=== PATIENT | female | born 1960 | race African-American/Black ===

== ENCOUNTER → 2016-11-30 | Emergency (ER) | payer OTHER ==
[2016-11-30 19:16] VITALS: BP 135/82; PULSE 68; TEMP 98; BMI 31.2
--- NOTE | 2016-11-30 20:08 | PDOC ---
History of Present Illness - General History Source: Patient Exam Limitations: No Limitations - History of Present Illness Initial Comments: 11/30/16 20:40 The patient is 56 year old female, with a significant past medical history of asthma, hypertension, and a brain aneurysm, who presents to the emergency department complaining of bloody stool for approximately 2 days. The patient reports she first noted her stool contained blood this past Saturday. She states she first thought her bloody stool was due to the beets she had eaten that day. However, the following day, she continued to note blood covering the toilet bowl and coating the stool. The patient denies any associated dizziness, lightheadedness, abdominal pain, nausea, vomiting, diarrhea, or constipation. She reports she is able to have 2 bowel movements per day. She states her last colonoscopy was 2 years ago. The patient denies any fever, chills, or weakness. She denies any dysuria, hematuria, frequency, or urgency. She denies any chest pain, shortness of breath, diaphoresis, or palpitations. Allergies: None reported Past Surgical History: Brain aneurysm removal Social History: Former smoker. No ETOH or drug use. PCP: Dr. David Wood Milling Machine Hand: Dr. Pena <Axel Santos - Last Filed: 11/30/16 20:49> <Ann Schumacher - Last Filed: 11/30/16 23:50> - General Chief Complaint: Rectal Bleed Stated Complaint: RECTAL BLEED Time Seen by Provider: 11/30/16 20:08 Past History <Axel Santos - Last Filed: 11/30/16 20:49> - Past Medical History Asthma: Yes HTN: Yes - Surgical History Neurologic Surgery: Yes (brain aneurysm 1999) - Psycho/Social/Smoking Cessation Hx Suicidal Ideation: No Smoking History: Former smoker Have you smoked in the past 12 months: Yes Number of Cigarettes Smoked Daily: 0 If you are a former smoker, when did you quit?: 2016 Information on smoking cessation initiated: No Substance Use Type: None <Ann Schumacher - Last Filed: 11/30/16 23:50> - Past Medical History Allergies/Adverse Reactions: Allergies Allergy/AdvReac Type Severity Reaction Status Date / Time No Known Allergies Allergy Verified 11/30/16 19:13 Home Medications: Ambulatory Orders Loratadine [Claritin] 10 mg PO PRN PRN 05/02/16 Montelukast Na [Singulair -] 10 mg PO HS 05/02/16 Pantoprazole Sodium 40 mg PO DAILY 05/02/16 Chlorthalidone 25 mg PO DAILY 11/30/16 Fluticasone Prop 0.05% Nasal [Flonase -] 1 - 2 spray NS DAILY 11/30/16 Omeprazole 20 mg PO DAILY 11/30/16 Review of Systems - Review of Systems Able to Perform ROS?: Yes Comments:: 11/30/16 20:40 GENERAL/CONSTITUTIONAL: No fever or chills. No weakness. HEAD, EYES, EARS, NOSE AND THROAT: No change in vision. No ear pain or discharge. No sore throat. CARDIOVASCULAR: No chest pain or shortness of breath. RESPIRATORY: No cough, wheezing, or hemoptysis. GASTROINTESTINAL: Yes: +hematochezia. No abdominal pain, melena, nausea, vomiting, diarrhea or constipation. GENITOURINARY: No dysuria, frequency, or change in urination. MUSCULOSKELETAL: No joint or muscle swelling or pain. No neck or back pain. SKIN: No rash NEUROLOGIC: No headache, vertigo, loss of consciousness, or change in strength/ sensation. ENDOCRINE: No increased thirst. No abnormal weight change. HEMATOLOGIC/LYMPHATIC: No anemia, easy bleeding, or history of blood clots. ALLERGIC/IMMUNOLOGIC: No hives or skin allergy. <Axel Santos - Last Filed: 11/30/16 20:49> *Physical Exam - Vital Signs Last Vital Signs Temp Pulse Resp BP Pulse Ox 98 F 68 18 135/82 97 11/30/16 19:13 11/30/16 19:13 11/30/16 19:13 11/30/16 19:13 11/30/16 19:13 - Physical Exam Comments: 11/30/16 20:40 GENERAL: Awake, alert, and fully oriented, in no acute distress HEAD: No signs of trauma EYES: PERRLA, EOMI, sclera anicteric, conjunctiva clear ENT: Auricles normal inspection, hearing grossly normal, nares patent, oropharynx clear without exudates. Moist mucosa NECK: Normal ROM, supple, no lymphadenopathy, JVD, or masses LUNGS: Diffuse crackles. Questionable fibrotic changes.No wheezes. HEART: Regular rate and rhythm, normal S1 and S2, no murmurs, rubs or gallops ABDOMEN: Soft, nontender, normoactive bowel sounds. No guarding, no rebound. No masses EXTREMITIES: Normal range of motion, no edema. No clubbing or cyanosis. No cords, erythema, or tenderness NEUROLOGICAL: Cranial nerves II through XII grossly intact. Normal speech, normal gait SKIN: Warm, Dry, normal turgor, no rashes or lesions noted. <Axel Santos - Last Filed: 11/30/16 20:49> - Vital Signs Last Vital Signs Temp Pulse Resp BP Pulse Ox 98 F 68 18 135/82 97 11/30/16 19:13 11/30/16 19:13 11/30/16 19:13 11/30/16 19:13 11/30/16 19:13 <Ann Schumacher - Last Filed: 11/30/16 23:50> ED Treatment Course - LABORATORY CBC & Chemistry Diagram: 11/30/16 20:50 11/30/16 20:50 <Ann Schumacher - Last Filed: 11/30/16 23:50> Medical Decision Making - Medical Decision Making 11/30/16 23:47 Pt comes with bloody stools yesterday and today. Stool guaic in the ER is negative for blood. Hb/HCT stable. She can follow with her PMD and her GI doc Becky. Last colonoscopy was 2 yrs ago. Pt understands that she needs another one, to be scheduled by herself next week. 11/30/16 23:50 Pt has chronically low K+ she takes potassium pills and eats bananas. I encouraged her to continue with the bananas and OJ daily. <Ann Schumacher - Last Filed: 11/30/16 23:50> *DC/Admit/Observation/Transfer - Attestations Scribe Attestion: 11/30/16 20:40 Documentation prepared by Axel Santos, acting as certified court/medical interpreter for Ann Schumacher MD. <Axel Santos - Last Filed: 11/30/16 20:49> - Discharge Dispostion Admit: No <nAn Schumacher - Last Filed: 11/30/16 23:50> Diagnosis at time of Disposition: Rectal bleed - Discharge Dispostion Disposition: HOME Condition at time of disposition: Stable - Referrals Referrals: Dinora Ratliff MD [Primary Care Provider] - Parish Pena MD [Staff Physician] - - Patient Instructions Printed Discharge Instructions: DI for Rectal Bleeding
[2016-11-30 21:01] LABS: BASOPHIL 0.5 % (0-2.0); EOSINOPHIL 2.7 % (0-4.5); MCH 28.7 pg (25.7-33.7); MCHC 33.2 g/dl (32.0-36.0); MEAN CELL VOLUME 86.4 fl (80-96); MEAN PLT VOLUME 7.9 fl (7.5-11.1); NEUTROPHILS 49.6 % (42.8-82.8); PLATELET COUNT 273 K/MM3 (134-434); WHITE BLOOD COUNT 7.9 K/mm3 (4.0-10.0)
[2016-11-30 21:21] LABS: INR 0.99 (0.82-1.09); PROTHROMBIN TIME (PATIENT) 10.9 SEC (9.98-11.88)
[2016-11-30 21:30] LABS: ALBUMIN 3.5 g/dl (3.4-5.0); ANION GAP 7 (8-16); CALCIUM 9.4 mg/dL (8.5-10.1); CO2 32 mmol/L (21-32); CREATININE 0.5 mg/dL (0.55-1.02); GLUCOSE,RANDOM 91 mg/dL (74-106); SGOT/AST 23 U/L (15-37); SGPT/ALT 29 U/L (12-78)
[2016-11-30 21:32] LABS: ALK PHOS 80 U/L (45-117); BILIRUBIN,TOTAL 0.4 mg/dL (0.2-1.0); TOT PROT 7.9 g/dl (6.4-8.2)
== END | disposition home or self-care (01) ==
LOC: JER 19:08
DX: K62.5 Hemorrhage of anus and rectum (principal); I10 Essential (primary) hypertension; J45.909 Unspecified asthma, uncomplicated
CPT/HCPCS: 36415; 80053; 82272; 85025; 85610; 85730; 86850; 86900; 86901; 99282-25

== ENCOUNTER 2017-05-24 13:56 | Emergency (ER) | payer OTHER ==
[2017-05-24 14:20] VITALS: BP 127/92; PULSE 88; TEMP 98.4; BMI 30.9
--- NOTE | 2017-05-24 14:20 | PDOC ---
Rapid Medical Evaluation Time Seen by Provider: 05/24/17 14:17 Medical Evaluation: Allergies Allergy/AdvReac Type Severity Reaction Status Date / Time No Known Allergies Allergy Verified 11/30/16 19:13 05/24/17 14:17 I have performed a brief in-person evaluation of this patient. The patient presents with a chief complaint of: Cough w/ CARRERA x 1 week, no sob or fever. H/o asthma, HTN, GERD Pertinent physical exam findings:Stable w/ clear chest/lungs I have ordered the following:nothing The patient will proceed to the ED for further evaluation.
[2017-05-24] MEDS ORDERED: predniSONE 20 MG TABLET (UD) PO ONE (16:05)
[2017-05-24] MEDS ORDERED: ALBUTEROL SO4 2.5/IPRATROPIUM 0.5 INH SOL 3 ML VIAL.NEB. NEB ONE (16:15)
[2017-05-24] MEDS ORDERED: predniSONE 20 MG TABLET (UD) ONE (16:15)
--- NOTE | 2017-05-24 16:15 | PDOC ---
History of Present Illness - General Chief Complaint: Respiratory Stated Complaint: COUGHING Time Seen by Provider: 05/24/17 14:17 History Source: Patient Exam Limitations: No Limitations - History of Present Illness Initial Comments: 05/24/17 16:08 This is a 57-year-old woman with past medical history of hypertension, asthma, gastritis, ruptured cerebral aneurysm 1999 who presents to emergency department with 7 days of dry productive cough. She states been coughing for the past week but thought it would improve steps when she had a delaying care. Patient denies any fevers or chills. Patient states the coughing has gotten worse to the point where she is now having posttussive chondral pain and headaches. Headache is frontal and feels different than her ruptured aneurysm. Patient reports she quit smoking approximately one year ago prior to that was 2 packs a day for the previous 30 years. Patient denies any sick contacts or recent travel. Past History - Past Medical History Allergies/Adverse Reactions: Allergies Allergy/AdvReac Type Severity Reaction Status Date / Time No Known Allergies Allergy Verified 05/24/17 14:20 Home Medications: Ambulatory Orders Loratadine [Claritin] 10 mg PO PRN PRN 05/02/16 Montelukast Na [Singulair -] 10 mg PO HS 05/02/16 Pantoprazole Sodium 40 mg PO DAILY 05/02/16 Chlorthalidone 25 mg PO DAILY 11/30/16 Fluticasone Prop 0.05% Nasal [Flonase -] 1 - 2 spray NS DAILY 11/30/16 Omeprazole 20 mg PO DAILY 11/30/16 Azithromycin [Zithromax 250mg Tablets -] 250 mg PO UTDICT #6 tab 05/24/17 Prednisone [Prednisone 50 MG TABLETS] 50 mg PO DAILY #4 tablet 05/24/17 Asthma: Yes COPD: No GI Disorders: Yes (acid reflux) HTN: Yes - Surgical History Neurologic Surgery: Yes (brain aneurysm 1999) - Suicide/Smoking/Psychosocial Hx Smoking History: Former smoker Have you smoked in the past 12 months: Yes Number of Cigarettes Smoked Daily: 0 If you are a former smoker, when did you quit?: 2016 Information on smoking cessation initiated: No Hx Alcohol Use: No Drug/Substance Use Hx: No Substance Use Type: None Review of Systems - Review of Systems Able to Perform ROS?: Yes Is the patient limited Ukrainian proficient: No Constitutional: No: Symptoms Reported HEENTM: No: Symptoms Reported Respiratory: Yes: See HPI Cardiac (ROS): No: Symptoms Reported ABD/GI: No: Symptoms Reported : No: Symptoms Reported Musculoskeletal: No: Symptoms Reported Integumentary: No: Symptoms Reported Neurological: Yes: See HPI *Physical Exam - Vital Signs Last Vital Signs Temp Pulse Resp BP Pulse Ox 98.4 F 88 127/92 96 05/24/17 14:17 05/24/17 14:17 05/24/17 14:17 05/24/17 14:17 - Physical Exam General Appearance: Yes: Appropriately Dressed. No: Apparent Distress HEENT: positive: Normal ENT Inspection Neck: positive: Trachea midline, Supple. negative: Tender Respiratory/Chest: positive: Crackles (left base). negative: Chest Tender, Respiratory Distress, Accessory Muscle Use Cardiovascular: positive: Regular Rhythm, Regular Rate, S1, S2. negative: Edema , Murmur Gastrointestinal/Abdominal: positive: Normal Bowel Sounds, Soft. negative: Tender Musculoskeletal: positive: Normal Inspection. negative: CVA Tenderness Extremity: positive: Normal Capillary Refill, Normal Inspection Integumentary: positive: Normal Color, Dry, Warm Neurologic: positive: juvenile probation officer II-XII NML intact, Fully Oriented, Alert, Normal Mood/ Affect, Normal Response, Motor Strength 5/5 ED Treatment Course - RADIOLOGY Radiology Studies Ordered: Category Date Time Status CHEST PA & LAT [RAD] Stat Radiology 05/24/17 16:05 Ordered Medical Decision Making - Medical Decision Making 05/24/17 16:15 This is a 57-year-old woman with past medical history of hypertension, asthma, gastritis, ruptured cerebral aneurysm 1999 who presents to emergency department with 7 days of dry productive cough. She states been coughing for the past week but thought it would improve steps when she had a delaying care. Patient denies any fevers or chills. Patient states the coughing has gotten worse to the point where she is now having posttussive chondral pain and headaches. Headache is frontal and feels different than her ruptured aneurysm. Patient reports she quit smoking approximately one year ago prior to that was 2 packs a day for the previous 30 years. Patient denies any sick contacts or recent travel. Patient is speaking in full sentences. Respirations even and unlabored without assess for muscle use. Patient with crackles in her left base. Crackles unable to clear after large cough. Headache is frontal and throbbing in nature. Patient states the headache worsens posttussive. Cranial nerves II through XII intact. Patient able to perform rapid alternating movements without difficulty. Gait is steady. Differential diagnosis include pneumonia, bronchitis I will obtain a chest x-ray PA and lateral. I will give the patient Combivent nebulizers and 40 mg of prednisone now. I will reevaluate patient after all treatment have been completed. 05/24/17 17:23 Chest x-ray - PA and lateral views. INDICATION: Abnormal lung sounds. COMPARISON : 09/19/2016 chest x-ray. FINDINGS: There are chronic, coarse reticular opacities throughout both lungs, which appear grossly similar to the prior chest x-ray allowing for differences in technique. There is unchanged biapical pleural thickening. There is no definite airspace consolidation. There is subsegmental atelectasis and/or scarring in the left lung base. There is no evidence of pulmonary vascular congestion, pleural effusion or pneumothorax. Normal size of the cardiomediastinal silhouette. No abnormal deviation of the trachea. IMPRESSION: No evidence of airspace consolidation, pulmonary vascular congestion or pleural effusion. Subsegmental atelectasis and/or scarring in the left lung base. Chronic, coarse reticular opacities throughout both lungs appear similar to the prior chest x-ray, representing some nonspecific interstitial lung disease with fibrotic changes. Reported By: Tawny Goldman DO 05/24/17 [id number] I discussed the physical exam findings, ancillary test results and final diagnoses with the patient. I answered all of the patient's questions. The patient was satisfied with the care received and felt comfortable with the discharge plan and treatment plan. The patient will call her doctor within 96 hours to arrange follow-up and will return to the Emergency Department with any new, persistent or worsening symptoms. *DC/Admit/Observation/Transfer Diagnosis at time of Disposition: Bronchitis - Discharge Dispostion Disposition: HOME Condition at time of disposition: Stable Admit: No - Prescriptions Prescriptions: Azithromycin [Zithromax 250mg Tablets -] 250 mg PO UTDICT #6 tab Prednisone [Prednisone 50 MG TABLETS] 50 mg PO DAILY #4 tablet - Referrals Referrals: Dinora Ratliff MD [Primary Care Provider] - - Patient Instructions Additional Instructions: Take azithromycin as prescribed. Take Tylenol or Motrin as needed for fevers and/or pain. Follow manufacturers instructions for appropriate dosage. Take Mucinex as directed by manufacturers instructions for cough. Keep well-hydrated. Return to emergency department for worsening fevers, cough, chest pain, dizziness, shortness of breath, or any other concerns. Thank you very much for choosing us to provide your emergent healthcare needs. - Post Discharge Activity
[2017-05-24] MEDS: ALBUTEROL SO4 2.5/IPRATROPIUM 0.5 INH SOL 3 ML VIAL.NEB. NEB SCH ×4 (16:17→17:22)
== END 2017-05-24 17:27 | disposition home or self-care (01) ==
LOC: JERFT 13:56
DX: J40 Bronchitis, not specified as acute or chronic (principal); I10 Essential (primary) hypertension; J45.909 Unspecified asthma, uncomplicated; I60.7 Nontraumatic subarachnoid hemorrhage from unspecified intracranial artery
CPT/HCPCS: 71020-TC; 99281-25

== ENCOUNTER 2017-07-05 22:16 | Emergency (ER) | payer OTHER ==
--- NOTE | 2017-07-05 23:13 | PDOC ---
History of Present Illness - History of Present Illness Initial Comments: 57 year old female with PMH of HTN, GERD, and asthma presenting with central superior buttox pain for the past day since slipping and landing on some ice. She did hit her head but did not suffer an skin breakage, OC, syncope, or other concerning symptom. She describes the tail bone pain as sharp 5/10-8/10, worse with sitting or pressure to the site and specifically when she stands up after sitting for a while. She has tried aleve with good pain control. Denies pain anywhere else. denies fevers, chills, gait abnormality, nausea, vomiting, parasthesias, lower motor weakness, bowel/ bladder incontinence, saddle anesthesia, or other symptom. 07/05/17 23:41 <Hi Li - Last Filed: 07/05/17 23:41> <Jerson Kelly - Last Filed: 07/06/17 01:56> - General Stated Complaint: FALL INJURY Time Seen by Provider: 07/05/17 23:12 Past History - Past Medical History Asthma: Yes COPD: No GI Disorders: Yes (acid reflux) HTN: Yes - Surgical History Neurologic Surgery: Yes (brain aneurysm 2000) - Suicide/Smoking/Psychosocial Hx Smoking History: Former smoker Have you smoked in the past 12 months: Yes Number of Cigarettes Smoked Daily: 0 If you are a former smoker, when did you quit?: 2016 Hx Alcohol Use: No Drug/Substance Use Hx: No Substance Use Type: None <Hi Li - Last Filed: 07/05/17 23:41> <Jerson Kelly - Last Filed: 07/06/17 01:56> - Past Medical History Allergies/Adverse Reactions: Allergies Allergy/AdvReac Type Severity Reaction Status Date / Time No Known Allergies Allergy Verified 07/05/17 23:11 Home Medications: Ambulatory Orders Loratadine [Claritin] 10 mg PO PRN PRN 05/02/16 Montelukast Na [Singulair -] 10 mg PO HS 05/02/16 Pantoprazole Sodium 40 mg PO DAILY 05/02/16 Chlorthalidone 25 mg PO DAILY 11/30/16 Fluticasone Prop 0.05% Nasal [Flonase -] 1 - 2 spray NS DAILY 11/30/16 Omeprazole 20 mg PO DAILY 11/30/16 Azithromycin [Zithromax 250mg Tablets -] 250 mg PO UTDICT #6 tab 05/24/17 Prednisone [Prednisone 50 MG TABLETS] 50 mg PO DAILY #4 tablet 05/24/17 Review of Systems - Review of Systems Constitutional: No: Chills, Diaphoresis, Fever HEENTM: No: Blurred Vision, Tearing Respiratory: Yes: Cough. No: Shortness of Breath, Wheezing Cardiac (ROS): No: Edema, Irregular Heart Rate, Chest Tightness <Hi Li - Last Filed: 07/05/17 23:41> *Physical Exam - Vital Signs Last Vital Signs Temp Pulse Resp BP Pulse Ox 98.1 F 76 16 138/88 96 07/05/17 23:12 07/05/17 23:12 07/05/17 23:12 07/05/17 23:12 07/05/17 23:12 <Jerson Kelly - Last Filed: 07/06/17 01:56> ED Treatment Course - Medications Given in the ED: ED Medications Discontinued Medications Generic Name Dose Route Start Last Admin Trade Name Kazq PRN Reason Stop Dose Admin Diazepam 5 mg 07/06/17 00:22 07/06/17 00:43 Valium - PO 07/06/17 00:23 Not Given ONCE ONE Naproxen 500 mg 07/06/17 00:22 07/06/17 00:39 Naprosyn - PO 07/06/17 00:23 500 mg ONCE ONE Administration <Jerson Kelly - Last Filed: 07/06/17 01:56> *DC/Admit/Observation/Transfer <Hi Li - Last Filed: 07/05/17 23:41> - Discharge Dispostion Admit: No <Jerson Kelly - Last Filed: 07/06/17 01:56> Diagnosis at time of Disposition: Bone bruise - Referrals Referrals: Fabrice Sanderson MD [Staff Physician] - - Patient Instructions Printed Discharge Instructions: Contusion Additional Instructions: Ice affected area 20 minutes on 20 minutes off. Take [id number] Aleve as directed on package and for 3 days. Follow-up with orthopedics next week. Return to the emergency department for any severe worsening symptoms or for any concerns.
[2017-07-05 23:19] VITALS: BP 138/88; PULSE 76; TEMP 98.1; BMI 32.5
--- NOTE | 2017-07-05 23:52 | PDOC ---
Attending Attestation - Resident Resident Name: Hi Li - ED Attending Attestation I have performed the following: I have examined & evaluated the patient, The case was reviewed & discussed with the resident, I agree w/resident's findings & plan, Exceptions are as noted <Jerson Kelly - Last Filed: 07/05/17 23:52> - HPI HPI: 07/06/17 01:12 The patient is a 57 year old female with pmxh of hypertension, GERD, and asthma presenting with buttox pain x1 day s/p fall. She describes the pain as sharp, 8/ 10 in severity that is worse with sitting and bending. It is nonradiating and well controlled by taking Aleve. She denies any numbness or tingling in bilateral lower extremities. She denies any saddle anesthesia, urinary or bladder incontinence. The patient additionally reports flu like symptoms including runny nose and body aches for the past few days. She denies any fever or chills. - Physicial Exam PE: 07/06/17 01:16 Vitals: Triage Vital signs reviewed General Appearance: no acute distress, well nourished well developed, Head: Atraumatic, normocephalic Cardiac: Regular rate and rhythm, no murmurs, no rubs, no gallops, Lungs: Clear to auscultation bilateral, good air movement bilaterally, Abdomen: Soft, nondistended, normal bowel sounds, nontender to palpation Back: Sacral tenderness to palpation Extremities: Full range of motion to all extremities, no cyanosis, clubbing, or edema Skin: Warm and dry, no rashes or lesions, no petechiae Neuro: AOX3; Cranial Nerves 2-12 grossly intact, Strength intact to all extremities, Sensation intact to all extremities - Medical Decision Making 07/06/17 01:18 Documentation prepared by Wendi Benitez, acting as medical insurance clerk for Jerson Kelly MD. <Wendi Benitez - Last Filed: 07/06/17 01:18>
[2017-07-06] MEDS ORDERED: NAPROXEN 500 MG TABLET (FP) PO ONE (00:22)
[2017-07-06] MEDS ORDERED: diazePAM 5 MG TABLET PO ONE (00:22)
[2017-07-06] MEDS ORDERED: NAPROXEN 500 MG TABLET (FP) ONE (00:36)
[2017-07-06] MEDS ORDERED: diazePAM 5 MG TABLET ONE (00:36)
== END 2017-07-06 02:05 | disposition home or self-care (01) ==
LOC: JER 22:16
DX: S30.0XXA Contusion of lower back and pelvis, initial encounter (principal); W00.0XXA Fall on same level due to ice and snow, initial encounter; Y93.01 Activity, walking, marching and hiking; Y92.414 Local residential or business street as the place of occurrence of the external cause; Y99.8 Other external cause status; I10 Essential (primary) hypertension; J45.909 Unspecified asthma, uncomplicated; K21.9 Gastro-esophageal reflux disease without esophagitis; Z87.891 Personal history of nicotine dependence
CPT/HCPCS: 72220-TC; 99282-25

== ENCOUNTER 2018-07-10 23:34 | Inpatient (IN) | payer OTHER ==
--- NOTE | 2018-07-11 00:25 | PDOC ---
Attending Attestation - HPI HPI: The patient is a 58 year old female, with a significant PMH of HTN, GERD, asthma, pulmonary nodules (s/p biopsy), ILD, migraines, and a brain aneurysm, who presents to the emergency department today complaining of fever, non- productive cough, body aches, nausea, NBNB vomit, and diarrhea for one day. Patient notes she began experiencing her symptoms this morning. She notes her measured temperature at home was 104 degrees. Patient states she has been experiencing dry non-productive cough, which causes her to develop a headache. She has been experiencing body aches and generalized muscle aches. Patient also reports multiple episodes of NBNB vomit, and non-bloody diarrhea. Patient also reports associated sore throat and runny nose, with one episode of blood on tissue when blowing nose (denies having a humidifier at home). Patient states she took an ibuprofen 2 hours prior to arrival. The patient denies chest pain, shortness of breath, and dizziness. Denies chills and constipation. Denies dysuria, frequency, urgency and hematuria. Allergies: NKA Past surgical history: Brain aneurysm removal Social history: Former smoker PCP: Dr. David 07/11/18 01:03 - Physicial Exam PE: GENERAL: Awake, alert, and fully oriented, in no acute distress HEAD: No signs of trauma EYES: PERRLA, EOMI, sclera anicteric, conjunctiva clear ENT: +Mild rhinorrhea. Auricles normal inspection, hearing grossly normal, nares patent, oropharynx and posterior pharynx clear without exudates. Moist mucosa NECK: Normal ROM, supple, no lymphadenopathy, JVD, or masses LUNGS: Breath sounds equal, clear to auscultation bilaterally. No wheezes, and no crackles HEART: +Tachycardic. Normal S1 and S2, no murmurs, rubs or gallops ABDOMEN: Soft, nontender, normoactive bowel sounds. No guarding, no rebound. No masses EXTREMITIES: Normal range of motion, no edema. No clubbing or cyanosis. No cords, erythema, or tenderness NEUROLOGICAL: Cranial nerves II through XII grossly intact. Normal speech, normal gait SKIN: Warm, Dry, normal turgor, no rashes or lesions noted. 07/11/18 01:37 - Medical Decision Making Documentation prepared by PARUL Jenkins, acting as registered medical transcriptionist for Consuelo Marcelo DO. 07/11/18 01:03 <Kena Carvalho - Last Filed: 07/11/18 01:37> - Resident Resident Name: SoleAlonso - ED Attending Attestation I have performed the following: I have examined & evaluated the patient, The case was reviewed & discussed with the resident, I agree w/resident's findings & plan, Exceptions are as noted - Medical Decision Making 07/11/18 00:25 I, Dr. Consuelo Marcelo, DO, attest that this document has been prepared under my direction and personally reviewed by me in its entirety. I further attest, that it accurately reflects all work, treatment, procedures and medical decision -making performed by me. 07/11/18 01:38 a/p: 58yo female with sob/cough/fever/body aches -unsure if she had the flu vaccine this year -cough is nonproductive -no cp -nbnb vomitus -concern for flu vs pna -will send labs, cultures, flu swab -will give iv tylenol and fluids -will monitor and reassess <Consuelo Marcelo - Last Filed: 07/11/18 01:40> Heart Score/ECG Review - ECG Intrepretation Comment:: 07/11/18 01:40 sinus at 98, nl axis, nl interval, no acute st/t wave findings <Consuelo Marcelo - Last Filed: 07/11/18 01:40>
[2018-07-11] MEDS ORDERED: LACTATED RINGERS SOLUTION 1000 ML INFUS.BAG IV ONE (00:26)
[2018-07-11] MEDS ORDERED: ONDANSETRON 4 MG/2 ML VIAL IVPUSH ONE (00:27)
--- NOTE | 2018-07-11 00:34 | PDOC ---
History of Present Illness - General Chief Complaint: SIRS, Suspected/Possible Stated Complaint: WEAKNESS Time Seen by Provider: 07/11/18 00:07 History Source: Patient - History of Present Illness Initial Comments: Patient is a 58 y/o F w/ PMHx HTN, asthma, pulmonary nodules s/p biopsy (Pt unaware of etiology) followed by serial imaging, ILD (per radiology read of chest CT), migraine, cerebral aneurysm, p/w 1 day h/o fever, non-productive cough, generalized weakness, generalized muscle ache, nausea and NBNB vomiting. Denies CP, pleuritic pain, abd pain, diarrhea, dysuria, focal weakness, change in sensation. ROS otherwise negative. Per family at bedside home temperature was recorded as 104. On presentation febrile to 101.4, tachy to 122 , tachypneic to 22. 07/11/18 00:28 Past History - Travel Traveled outside of the country in the last 30 days: No Close contact w/someone who was outside of country & ill: No - Past Medical History Allergies/Adverse Reactions: Allergies Allergy/AdvReac Type Severity Reaction Status Date / Time No Known Allergies Allergy Verified 07/10/18 23:48 Home Medications: Ambulatory Orders Loratadine [Claritin] 10 mg PO PRN PRN 05/02/16 Fluticasone Prop 0.05% Nasal [Flonase -] 1 - 2 spray NS DAILY 11/30/16 Albuterol Sulfate Inhaler - [Ventolin Hfa Inhaler -] 1 - 2 inh PO Q4H 07/11/18 Amlodipine Besylate 5 mg PO DAILY 07/11/18 Hydrochlorothiazide 25 mg PO DAILY 07/11/18 Ibuprofen 600 mg PO QID PRN 07/11/18 Magnesium Oxide 400 mg PO DAILY 07/11/18 Metoclopramide HCl 10 mg PO QID PRN 07/11/18 Riboflavin (Vitamin B2) [Riboflavin] 400 mg PO DAILY 07/11/18 Tiotropium [place] [Spiriva Respimat] 4 gm IH DAILY 07/11/18 metFORMIN HCL [Metformin HCl] 500 mg PO DAILY 07/11/18 Asthma: Yes COPD: No GI Disorders: Yes (acid reflux) HTN: Yes - Surgical History Neurologic Surgery: Yes (brain aneurysm 1999) - Immunization History Immunization Up to Date: Yes - Suicide/Smoking/Psychosocial Hx Smoking History: Former smoker Have you smoked in the past 12 months: No Number of Cigarettes Smoked Daily: 0 If you are a former smoker, when did you quit?: 2 years ago Information on smoking cessation initiated: No Hx Alcohol Use: No Drug/Substance Use Hx: No Substance Use Type: None Review of Systems - Review of Systems Comments:: As per HPI 07/11/18 00:33 *Physical Exam - Vital Signs Last Vital Signs Temp Pulse Resp BP Pulse Ox 101.4 F H 122 H 22 H 146/94 93 L 07/10/18 23:46 07/10/18 23:46 07/10/18 23:46 07/10/18 23:46 07/10/18 23:46 - Physical Exam Comments: Gen: A&Ox3, NAD HEENT: NC/AT, PERRLA, EOMI, MMM, no exudates Neck: supple, no LAD, no JVD CV: tachycardic, no m/r/g Resp: scant basilar wheezing Abd: +bs, soft, NT, ND Ext: 2+ pulses, wwp, no edema, no calf tenderness 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, 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, 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 Psych: normal mood, normal affect Skin: warm, dry, normal turgor 07/11/18 00:33 Moderate Sedation - Procedure Monitoring Vital Signs: Procedure Monitoring Vital Signs Temperature 101.4 F H 07/10/18 23:46 Pulse Rate 122 H 07/10/18 23:46 Respiratory Rate 22 H 07/10/18 23:46 Blood Pressure 146/94 07/10/18 23:46 O2 Sat by Pulse Oximetry (%) 93 L 07/10/18 23:46 ED Treatment Course - LABORATORY CBC & Chemistry Diagram: 07/11/18 00:57 07/11/18 00:57 - RADIOLOGY Radiology Studies Ordered: Category Date Time Status CHEST X-RAY PORTABLE* [RAD] Stat Radiology 07/11/18 00:23 Ordered Medical Decision Making - Medical Decision Making Presentation is c/w flu. Ordered the following: CBC, CMP, Mg, Phos, CXR, flu swab, EKG, BCx, UA, UCx, lactate. Treating w/ Zofran, IV tylenol, and IVF. No indication for ABx thus far. 07/11/18 00:35 CXR concerning for PNA. Flu swab negative. CT chest ordered. WBC elevated. 07/11/18 02:10 *DC/Admit/Observation/Transfer Diagnosis at time of Disposition: Pneumonia - Discharge Dispostion Condition at time of disposition: Guarded Decision to Admit order: Yes - Referrals - Patient Instructions - Post Discharge Activity
[2018-07-11] MEDS ORDERED: ACETAMINOPHEN 1000 MG/100 ML VIAL (NON FORMULARY) IVPB ONE (00:40)
[2018-07-11] MEDS ORDERED: ONDANSETRON 4 MG/2 ML VIAL ONE (00:54)
[2018-07-11 01:09] LABS: BASO % 0.3 % (0-2.0); EOS % 0.9 % (0-4.5); HEMATOCRIT 37.7 % (32.4-45.2); HEMOGLOBIN 13.3 GM/dL (10.7-15.3); LYMPH % 7.9 % (8-40); MCHC 35.3 g/dl (32.0-36.0); MEAN CELL VOLUME 87.8 fl (80-96); MEAN PLT VOLUME 7.9 fl (7.5-11.1); MONO % 5.2 % (3.8-10.2); NEUT % 85.7 % (42.8-82.8); PLATELET COUNT 282 K/MM3 (134-434); RDW 14.2 % (11.6-15.6)
[2018-07-11] MEDS ORDERED: ACETAMINOPHEN INJECTION 100 ML IVPB ONE (01:11)
[2018-07-11] MEDS ORDERED: AZITHROMYCIN 250 MG TABLET PO ONE (01:25)
[2018-07-11] MEDS ORDERED: CEFTRIAXONE 1 GM in DEXTROSE 5%-WATER - 100 ML IVPB ONE (01:25)
[2018-07-11] MEDS ORDERED: CEFTRIAXONE 1 GM/50 ML BAG ONE ×2 (01:31→10:34)
[2018-07-11] MEDS ORDERED: AZITHROMYCIN 250 MG TABLET ONE (01:31)
[2018-07-11 02:58] LABS: URINE APPEARANCE SLCLOUDY; URINE BILIRUBIN NEGATIVE (<2.0 mg/dL); URINE COLOR AMBER; URINE GLUCOSE (UA) NEGATIVE (NEGATIVE); URINE KETONE NEGATIVE (NEGATIVE); URINE LEUK ESTERASE 1+ (NEGATIVE); URINE NITRITE NEGATIVE (NEGATIVE); URINE PROTEIN 1+ (NEGATIVE)
--- NOTE | 2018-07-11 03:02 | PDOC ---
*Physical Exam - Vital Signs Last Vital Signs Temp Pulse Resp BP Pulse Ox 101.4 F H 122 H 22 H 146/94 93 L 07/10/18 23:46 07/10/18 23:46 07/10/18 23:46 07/10/18 23:46 07/10/18 23:46 - Physical Exam Comments: Patient was signed out to me by Dr. Whipple ED Treatment Course - LABORATORY CBC & Chemistry Diagram: 07/11/18 00:57 07/11/18 00:57 - ADDITIONAL ORDERS Additional order review: Laboratory Results 07/11/18 02:29 Urine Color Karoline Urine Appearance Slcloudy Urine pH 5.0 Ur Specific [place] 1.030 Urine Protein 1+ H Urine Glucose (UA) Negative Urine Ketones Negative Urine Blood Negative Urine Nitrite Negative Urine Bilirubin Negative Urine Urobilinogen 2.0 H Ur Leukocyte Esterase 1+ H 07/11/18 00:57 RBC 4.30 MCV 87.8 MCHC 35.3 RDW 14.2 MPV 7.9 Neutrophils % 85.7 H D Lymphocytes % 7.9 L D Monocytes % 5.2 Eosinophils % 0.9 Basophils % 0.3 - Medications Given in the ED: ED Medications Discontinued Medications Generic Name Dose Route Start Last Admin Trade Name Freq PRN Reason Stop Dose Admin Acetaminophen 1,000 mg 07/11/18 00:40 07/11/18 01:15 Ofirmev Injection - IVPB 07/11/18 00:41 1,000 mg ONCE ONE Administration Azithromycin 500 mg 07/11/18 01:25 07/11/18 01:41 Zithromax - PO 07/11/18 01:26 500 mg ONCE ONE Administration Ceftriaxone Sodium 1 gm/ 100 mls @ 200 mls/hr 07/11/18 01:25 07/11/18 01:42 Dextrose IVPB 07/11/18 01:54 200 mls/hr ONCE ONE Administration Protocol Lactated Ringer's 1,000 ml 07/11/18 00:26 07/11/18 01:10 Lactated Ringers Solution IV 07/11/18 00:27 1,000 ml ONCE ONE Administration Ondansetron HCl 4 mg 07/11/18 00:27 07/11/18 01:11 Zofran Injection IVPUSH 07/11/18 00:28 4 mg ONCE ONE Administration Medical Decision Making - Medical Decision Making Patient had CT chest to rule out PNA. This is 58 yo F with a hx of pulmonary fibrosis who presented with fever, tachycardia and hypoxia. With fluids, tylenol , her fever reduced and resolved the tachycardia. 07/11/18 05:36 CT showed no PNA or pleural effusions. Scattered atelectatic/fibrotic changes bilateral lungs. Calcifications left lower lobe. Enlarged mediastinal lymph nodes, indeterminate. Refer to incidence report of previous erroneous upload of another patient's CT chest and CXR to this patient's chart Spoke to the admitting team regarding admission. Patient should be admitted for fever of unknown origin given that her 1+ leukesterase is possibly not the source of her systemic response (SIRS positive) with negative influenza. Suspicion is either early PNA or influenza C or another infectious etiology attributing to symptoms. to be admitted for further work up. started on azithro and ceftriaxone from previous team prior to sign out. *DC/Admit/Observation/Transfer Diagnosis at time of Disposition: Pneumonia Qualifiers: Pneumonia type: due to unspecified organism Laterality: unspecified laterality Lung location: unspecified part of lung Qualified Code(s): J18.9 - Pneumonia, unspecified organism Sepsis Qualifiers: Sepsis type: sepsis due to unspecified organism Qualified Code(s): A41.9 - Sepsis, unspecified organism - Discharge Dispostion Condition at time of disposition: Guarded - Referrals - Patient Instructions - Post Discharge Activity
[2018-07-11 03:03] LABS: EPI CELLS RARE /HPF (FEW); URINE BACTERIA RARE /hpf (NONE SEEN); URINE MUCUS MANY
[2018-07-11 04:14] LABS: ANION GAP 10 MMOL/L (8-16); BLOOD UREA NITROGEN 19 mg/dL (7-18); CALCIUM 8.8 mg/dL (8.5-10.1); CHLORIDE 107 mmol/L (98-107); CO2 24 mmol/L (21-32); CREATININE 0.7 mg/dL (0.55-1.3); GLUCOSE,RANDOM 122 mg/dL (74-106); PHOSPHOROUS 3.1 mg/dL (2.5-4.9); POTASSIUM 3.9 mmol/L (3.5-5.1); SODIUM 141 mmol/L (136-145)
[2018-07-11 04:15] LABS: ALBUMIN 3.4 g/dl (3.4-5.0); ALK PHOS 75 U/L (45-117); BILIRUBIN,TOTAL 0.3 mg/dL (0.2-1); MAGNESIUM 1.8 mg/dL (1.8-2.4); SGOT/AST 14 U/L (15-37); SGPT/ALT 16 U/L (13-61); TOT PROT 7.9 g/dl (6.4-8.2)
[2018-07-11 07:22] LABS: ARTERIAL BLOOD GAS PCO2 39.6 mmHg (35-45); ARTERIAL BLOOD GAS PO2 56.7 mmHg (80-100)
[2018-07-11 07:23] LABS: ARTERIAL BLD GAS O2 SATURATION 87.6 % (90-98.9); ARTERIAL BLOOD GAS BASE EXCESS 2.1 meq/l (-2-2)
[2018-07-11 07:24] LABS: ALLENS TEST POSITIVE; CARBOXYHEMOGLOBIN 1.4 gm% (0.5-2.0)
[2018-07-11] MEDS: SODIUM CHLORIDE 1,000 ML IV SCH (08:26)
--- NOTE | 2018-07-11 08:26 | HP ---
CHIEF COMPLAINT: " Fever, malaise, dry cough" PCP: Dr. Cisneros Neurologist: Dr. Cornell Pulmonary: Pt doesn't remember the name. HISTORY OF PRESENT ILLNESS: Patient is a 58 year old female was brought in to the ED by her son with the chief complaint of Fever and malaise x 1 day. As per the patient, she was apparently well until yesterday afternoon, she came back from work took a nap and woke up with fever Temp 103.1 F, associated with malaise, generalized weakness. Took a dose of Ibuprofen at home for fever with slight relief. She stood up and had urinary incontinence (patient reports her bladder is weak) . No urinary symptoms. She also mentions her cough is getting worse, mostly dry and worsening shortness of breath on exertion. Has been using Albuterol inhaler more frequently then before since few weeks. Uses at least 3 times while at work. Patient also had nausea and one episode of NBNB vomiting hence came in to the ED for further evaluation and treatment. Denies any sick contact. Last BM yesterday. Sleep normal. Appetite decreased since her illness. In the ED, now complaining of abdominal pain, in the epigastric area, 4/10 in intensity, intermittent, non radiating associated with nausea. Also reports to have chills and malaise, has layers of warm blankets and jackets on her. Patient was admitted at [facility] in 2015 for CAP and fractured ribs s/p fall. Patient reports she has a h/o lung problems, had a biopsy done in 05/02 at [facility] but doesn't know the results. 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 (doesn't remember the name) ER course was notable for: (1) Temp 101.4 F, Tachycardic 122, Hypoxic 93, leukocytosis 12 (2) Chest CT: Chronic interstitial lung disease, no acute pathology (3) EKG: NSR, Normal Qtc (4) IV LR 1 L, IV Ceftriaxone and IV Azithromycin Recent Travel: None PAST MEDICAL HISTORY: Hypertension, Asthma, DM, ILD, pulmonary nodules s/p lung biopsy [facility] (04/26/2016), brain aneurysm s/p clips, Left frontotemproal craniotomy, migraines PAST SURGICAL HISTORY: As mentioned above Social History: Smoking: Smoked for 25 yrs, quit 3 years ago Alcohol: Noah Drugs: Denies Family History: Mother-DM, daughter: Uterine cancer Allergies No Known Allergies Allergy (Verified 07/10/18 23:48) HOME MEDICATIONS: Home Medications Medication Instructions Recorded Loratadine [Claritin] 10 mg PO PRN PRN 05/02/16 Fluticasone Prop 0.05% Nasal 1 - 2 spray NS DAILY 11/30/16 [Flonase -] Albuterol Sulfate Inhaler - 1 - 2 inh PO Q4H 07/11/18 [Ventolin Hfa Inhaler -] Amlodipine Besylate 5 mg PO DAILY 07/11/18 Hydrochlorothiazide 25 mg PO DAILY 07/11/18 Ibuprofen 600 mg PO QID PRN 07/11/18 Magnesium Oxide 400 mg PO DAILY 07/11/18 Metoclopramide HCl 10 mg PO QID PRN 07/11/18 Riboflavin (Vitamin B2) 400 mg PO DAILY 07/11/18 [Riboflavin] Tiotropium Advance [Spiriva 4 gm IH DAILY 07/11/18 Respimat] metFORMIN HCL [Metformin HCl] 500 mg PO DAILY 07/11/18 REVIEW OF SYSTEMS CONSTITUTIONAL: Present; fever, chills, diaphoresis, generalized weakness, malaise, loss of appetite, Absent: weight change HEENT: Absent: rhinorrhea, nasal congestion, throat pain, throat swelling, difficulty swallowing, mouth swelling, ear pain, eye pain, visual changes CARDIOVASCULAR: Absent: chest pain, syncope, palpitations, irregular heart rate, lightheadedness , peripheral edema RESPIRATORY: Absent: cough, shortness of breath, dyspnea with exertion, orthopnea, wheezing, stridor, hemoptysis GASTROINTESTINAL: Present: Nausea, vomiting. Absent: abdominal pain, abdominal distension, nausea, vomiting, diarrhea, constipation, melena, hematochezia GENITOURINARY: Absent: dysuria, frequency, urgency, hesitancy, hematuria, flank pain, genital pain MUSCULOSKELETAL: Absent: myalgia, arthralgia, joint swelling, back pain, neck pain SKIN: Absent: rash, itching, pallor HEMATOLOGIC/IMMUNOLOGIC: Absent: easy bleeding, easy bruising, lymphadenopathy, frequent infections ENDOCRINE: Absent: unexplained weight gain, unexplained weight loss, heat intolerance, cold intolerance NEUROLOGIC: Absent: headache, focal weakness or paresthesias, dizziness, unsteady gait, seizure, mental status changes, bladder or bowel incontinence PSYCHIATRIC: Absent: anxiety, depression, suicidal or homicidal ideation, hallucinations. PHYSICAL EXAMINATION Vital Signs - 24 hr 07/10/18 07/10/18 07/11/18 23:46 23:50 00:24 Temperature 101.4 F H Pulse Rate 122 H Pulse Rate [ Right Radial] Respiratory 22 H Rate Blood Pressure 146/94 Blood Pressure [Right Arm] O2 Sat by Pulse 93 L 98 98 Oximetry (%) 07/11/18 07/11/18 04:49 07:46 Temperature 98.7 F 100.0 F H Pulse Rate 93 H Pulse Rate [ 88 93 H Right Radial] Respiratory 19 16 Rate Blood Pressure Blood Pressure 111/68 118/57 L [Right Arm] O2 Sat by Pulse 95 Oximetry (%) GENERAL: Middle aged female, lying in bed, Awake, alert, and fully oriented, in no acute distress. EYES: EOM intac, no pallor or icterus. NECK: Supple, no JVD LUNGS: B.L coarse breath sounds bilaterally. Occasional wheeze. HEART: Regular rate and rhythm, normal S1 and S2 without murmur. ABDOMEN: Soft, tenderness in the epigastric area, BS +, no organomegaly. UPPER EXTREMITIES: 2+ pulses, warm, well-perfused. No cyanosis. No clubbing. No peripheral edema. LOWER EXTREMITIES: 2+ pulses, warm, well-perfused. No calf tenderness. No peripheral edema. NEUROLOGICAL: No facial droop. Power 5/5 in all extremities. Sensation intact. Cranial nerves II-XII intact. Normal speech. Gait not observed. PSYCHIATRIC: Cooperative. Good eye contact. Appropriate mood and affect. SKIN: Warm, dry, normal turgor, no rashes or lesions noted, normal capillary refill. Laboratory Results - last 24 hr 07/11/18 07/11/18 07/11/18 00:37 00:45 00:57 WBC 12.0 H RBC 4.30 Hgb 13.3 Hct 37.7 MCV 87.8 MCH 31.0 MCHC 35.3 RDW 14.2 Plt Count 282 MPV 7.9 Absolute Neuts (auto) 10.3 H Neutrophils % 85.7 H D Lymphocytes % 7.9 L D Monocytes % 5.2 Eosinophils % 0.9 Basophils % 0.3 Nucleated RBC % 0 Anticoagulation Therapy Puncture Site ABG pH ABG pCO2 at Pt Temp ABG pO2 at Pt Temp ABG HCO3 ABG O2 Sat (Measured) ABG O2 Content ABG Base Excess Keegan Test Carboxyhemoglobin Methemoglobin O2 Delivery Device Oxygen Flow Rate Vent Mode Vent Rate Mechanical Rate Pressure Support Vent Sodium Potassium Chloride Carbon Dioxide Anion Gap BUN Creatinine Creat Clearance w eGFR Random Glucose Lactic Acid 1.6 Calcium Phosphorus Magnesium Total Bilirubin AST ALT Alkaline Phosphatase Creatine Kinase Troponin I B-Natriuretic Peptide Total Protein Albumin Urine Color Urine Appearance Urine pH Ur Specific [place] Urine Protein Urine Glucose (UA) Urine Ketones Urine Blood Urine Nitrite Urine Bilirubin Urine Urobilinogen Ur Leukocyte Esterase Urine WBC (Auto) Urine RBC (Auto) Ur Epithelial Cells Urine Bacteria Urine Mucus Influenza A (Rapid) Negative Influenza B (Rapid) Negative 07/11/18 07/11/18 07/11/18 00:57 01:25 02:29 WBC RBC Hgb Hct MCV MCH MCHC RDW Plt Count MPV Absolute Neuts (auto) Neutrophils % Lymphocytes % Monocytes % Eosinophils % Basophils % Nucleated RBC % Anticoagulation Therapy Puncture Site ABG pH ABG pCO2 at Pt Temp ABG pO2 at Pt Temp ABG HCO3 ABG O2 Sat (Measured) ABG O2 Content ABG Base Excess Keegan Test Carboxyhemoglobin Methemoglobin O2 Delivery Device Oxygen Flow Rate Vent Mode Vent Rate Mechanical Rate Pressure Support Vent Sodium 141 Potassium 3.9 Chloride 107 Carbon Dioxide 24 Anion Gap 10 BUN 19 H Creatinine 0.7 Creat Clearance w eGFR > 60 Random Glucose 122 H Lactic Acid Calcium 8.8 Phosphorus 3.1 Magnesium 1.8 Total Bilirubin 0.3 AST 14 L ALT 16 Alkaline Phosphatase 75 Creatine Kinase Troponin I B-Natriuretic Peptide 120 Total Protein 7.9 Albumin 3.4 Urine Color Karoline Urine Appearance Slcloudy Urine pH 5.0 Ur Specific [place] 1.030 Urine Protein 1+ H Urine Glucose (UA) Negative Urine Ketones Negative Urine Blood Negative Urine Nitrite Negative Urine Bilirubin Negative Urine Urobilinogen 2.0 H Ur Leukocyte Esterase 1+ H Urine WBC (Auto) 1 Urine RBC (Auto) 3 Ur Epithelial Cells Rare Urine Bacteria Rare Urine Mucus Many Influenza A (Rapid) Influenza B (Rapid) 07/11/18 07/11/18 03:20 07:00 WBC RBC Hgb Hct MCV MCH MCHC RDW Plt Count MPV Absolute Neuts (auto) Neutrophils % Lymphocytes % Monocytes % Eosinophils % Basophils % Nucleated RBC % Anticoagulation Therapy No Result Required. Puncture Site Right brachial ABG pH 7.40 ABG pCO2 at Pt Temp 39.6 ABG pO2 at Pt Temp 56.7 L ABG HCO3 26.0 ABG O2 Sat (Measured) 87.6 L ABG O2 Content 15.8 ABG Base Excess 2.1 H Keegan Test Positive Carboxyhemoglobin 1.4 Methemoglobin 1.0 O2 Delivery Device Room air Oxygen Flow Rate No Vent Mode No Result Required. Vent Rate No Result Required. Mechanical Rate No Result Required. Pressure Support Vent No Result Required. Sodium Potassium Chloride Carbon Dioxide Anion Gap BUN Creatinine Creat Clearance w eGFR Random Glucose Lactic Acid Calcium Phosphorus Magnesium Total Bilirubin AST ALT Alkaline Phosphatase Creatine Kinase 71 Troponin I < 0.02 B-Natriuretic Peptide Total Protein Albumin Urine Color Urine Appearance Urine pH Ur Specific [place] Urine Protein Urine Glucose (UA) Urine Ketones Urine Blood Urine Nitrite Urine Bilirubin Urine Urobilinogen Ur Leukocyte Esterase Urine WBC (Auto) Urine RBC (Auto) Ur Epithelial Cells Urine Bacteria Urine Mucus Influenza A (Rapid) Influenza B (Rapid) ASSESSMENT/PLAN: Patient is a 58 year old female with significant past medical history of Hypertension, Asthma, DM, ILD, pulmonary nodules s/p lung biopsy [facility] (), brain aneurysm s/p clips, Left frontotemproal craniotomy, migraines was brought in to the ED by her son with the chief complaint of Fever and malaise x 1 day. # Sepsis likely secondary to early developing CAP vs Flu. c/o Fever 103 F at home, malaise, generalized weakness, dry cough. On arrival to the ED, Temp was 101.4 F, Tachycardic 122, Hypoxic 93, leukocytosis 12 Influenza is negative however given patient's high grade fever, malaise, high suspicion for flu. Was given 1L of LR, IV Ceftriaxone and Azithro in the ED. Chest CT showed: Chronic interstitial lung disease, no acute pathology. Admit to non cardiac tele/continuous pulse ox monitoring for hypoxia IV NS @ 83 mls/hr Although CT is negative for pneumonia, patient could be developing early pneumonia, will continue IV Ceftriaxone and IV Azithromycin (normal Qtc) High suspicion for flu, will treat with Tamiflu 75 mg BID x 5 days. Oxygen PRN Blood culture/Urine culture pending Urine for legionella antigen ordered. # Asthma exacerbation Shortness of breath on exertion. has been using albuterol more often Continue Albuterol inhalation PRN and Spiriva # Pulmonary nodule s/p biopsy 04/26/16 and Chronic ILD Patient states she doesn't know the results of the biopsy. Will try to call [facility] and get the pathology report. Follow up as outpatient with pulmonary. # Abdominal pain, nausea vomiting-could be viral gastroenteritis Continue IV hydration. IV Reglan for nausea, vomiting. No episodes of diarrhoea. # DM Hold Metformin. Continue ISS. Watch for hypoglycemic episodes # Hypertension-controlled Continue Amlodipine 5mg PO daily # Brain aneurysm s/p clips Follow up as outpatient with neurologist # Migraine Continue Reglan PRN and MgO. F/up with Dr. Cornell as outpatient. # FEN IV NS @ 83 mls.hr Electrolytes WNL Diabetic diet # Prophylaxis For DVT: On Heparin 5000 IU sq TID For GI: Not indicated # Code Status: Full Code # Dispo: Admit to non cardiac tele. Duration of stay unknown. Illness, Investigation and Plan of care explained to the patient. She verbalized understanding. Case discussed with Dr. Lainez. Visit type - Emergency Visit Emergency Visit: Yes ED Registration Date: 07/11/18 Care time: The patient presented to the Emergency Department on the above date and was hospitalized for further evaluation of their emergent condition. - New Patient This patient is new to me today: Yes Date on this admission: 07/11/18 - Critical Care Critical Care patient: No
[2018-07-11] MEDS ORDERED: LORATADINE 10 MG TABLET PO PRN (08:33)
[2018-07-11] MEDS ORDERED: METOCLOPRAMIDE HCL 10 MG TABLET (FP) PO PRN ×2 (08:33→10:08)
[2018-07-11] MEDS ORDERED: ALBUTEROL SO4 8 GM HFA INHALER IH SCH (08:45)
[2018-07-11] MEDS ORDERED: ALBUTEROL SO4 8 GM HFA INHALER IH PRN ×2 (09:16→09:17)
[2018-07-11] MEDS: ACETAMINOPHEN 325 MG TABLET (FP) PO PRN ×2 (09:24→20:25)
[2018-07-11] MEDS ORDERED: ACETAMINOPHEN 325 MG TABLET (FP) ONE (09:24)
--- NOTE | 2018-07-11 10:11 | PN ---
Teaching Attending Note Name of Resident: Debbie Rebollar ATTENDING PHYSICIAN STATEMENT I saw and evaluated the patient. I reviewed the resident's note and discussed the case with the resident. I agree with the resident's findings and plan as documented. SUBJECTIVE: This is a 58 year old woman with a history of HTN, type 2 DM, asthma , interstitial lung disease, lung nodules, GERD, migraine CARRERA, brain aneurysm who comes to the ED complaining of fever and weakness. She says that after work yesterday, she took a nap and awoke with fever of 103, chills, aches, and generalized weakness. She has had a non-productive cough and feels short of breath with exertion. She also reports one episode of nausea with vomiting yesterday. OBJECTIVE: Vital Signs Period Temp Pulse Resp BP Sys/Medeiros Pulse Ox Last 24 Hr 98.7 F-101.4 F 88-122 16-22 111-146/51-94 93-98 HEART: S1S2, tachycardic LUNGS: Bibasilar crackles ABDOMEN: Obese, soft, non-tender, non-distended, normal BS EXTREMITIES: No edema Laboratory Tests 07/11/18 07/11/18 07/11/18 00:37 00:45 00:57 WBC 12.0 H RBC 4.30 Hgb 13.3 Hct 37.7 MCV 87.8 MCH 31.0 MCHC 35.3 RDW 14.2 Plt Count 282 MPV 7.9 Absolute Neuts (auto) 10.3 H Neutrophils % 85.7 H D Lymphocytes % 7.9 L D Monocytes % 5.2 Eosinophils % 0.9 Basophils % 0.3 Nucleated RBC % 0 Anticoagulation Therapy Puncture Site ABG pH ABG pCO2 at Pt Temp ABG pO2 at Pt Temp ABG HCO3 ABG O2 Sat (Measured) ABG O2 Content ABG Base Excess Keegan Test Carboxyhemoglobin Methemoglobin O2 Delivery Device Oxygen Flow Rate Vent Mode Vent Rate Mechanical Rate Pressure Support Vent Sodium Potassium Chloride Carbon Dioxide Anion Gap BUN Creatinine Creat Clearance w eGFR Random Glucose Lactic Acid 1.6 Calcium Phosphorus Magnesium Total Bilirubin AST ALT Alkaline Phosphatase Creatine Kinase Troponin I B-Natriuretic Peptide Total Protein Albumin Urine Color Urine Appearance Urine pH Ur Specific Lehr Urine Protein Urine Glucose (UA) Urine Ketones Urine Blood Urine Nitrite Urine Bilirubin Urine Urobilinogen Ur Leukocyte Esterase Urine WBC (Auto) Urine RBC (Auto) Ur Epithelial Cells Urine Bacteria Urine Mucus Influenza A (Rapid) Negative Influenza B (Rapid) Negative 07/11/18 07/11/18 07/11/18 00:57 01:25 02:29 WBC RBC Hgb Hct MCV MCH MCHC RDW Plt Count MPV Absolute Neuts (auto) Neutrophils % Lymphocytes % Monocytes % Eosinophils % Basophils % Nucleated RBC % Anticoagulation Therapy Puncture Site ABG pH ABG pCO2 at Pt Temp ABG pO2 at Pt Temp ABG HCO3 ABG O2 Sat (Measured) ABG O2 Content ABG Base Excess Keegan Test Carboxyhemoglobin Methemoglobin O2 Delivery Device Oxygen Flow Rate Vent Mode Vent Rate Mechanical Rate Pressure Support Vent Sodium 141 Potassium 3.9 Chloride 107 Carbon Dioxide 24 Anion Gap 10 BUN 19 H Creatinine 0.7 Creat Clearance w eGFR > 60 Random Glucose 122 H Lactic Acid Calcium 8.8 Phosphorus 3.1 Magnesium 1.8 Total Bilirubin 0.3 AST 14 L ALT 16 Alkaline Phosphatase 75 Creatine Kinase Troponin I B-Natriuretic Peptide 120 Total Protein 7.9 Albumin 3.4 Urine Color Karoline Urine Appearance Slcloudy Urine pH 5.0 Ur Specific Lehr 1.030 Urine Protein 1+ H Urine Glucose (UA) Negative Urine Ketones Negative Urine Blood Negative Urine Nitrite Negative Urine Bilirubin Negative Urine Urobilinogen 2.0 H Ur Leukocyte Esterase 1+ H Urine WBC (Auto) 1 Urine RBC (Auto) 3 Ur Epithelial Cells Rare Urine Bacteria Rare Urine Mucus Many Influenza A (Rapid) Influenza B (Rapid) 07/11/18 07/11/18 03:20 07:00 WBC RBC Hgb Hct MCV MCH MCHC RDW Plt Count MPV Absolute Neuts (auto) Neutrophils % Lymphocytes % Monocytes % Eosinophils % Basophils % Nucleated RBC % Anticoagulation Therapy No Result Required. Puncture Site Right brachial ABG pH 7.40 ABG pCO2 at Pt Temp 39.6 ABG pO2 at Pt Temp 56.7 L ABG HCO3 26.0 ABG O2 Sat (Measured) 87.6 L ABG O2 Content 15.8 ABG Base Excess 2.1 H Keegan Test Positive Carboxyhemoglobin 1.4 Methemoglobin 1.0 O2 Delivery Device Room air Oxygen Flow Rate No Vent Mode No Result Required. Vent Rate No Result Required. Mechanical Rate No Result Required. Pressure Support Vent No Result Required. Sodium Potassium Chloride Carbon Dioxide Anion Gap BUN Creatinine Creat Clearance w eGFR Random Glucose Lactic Acid Calcium Phosphorus Magnesium Total Bilirubin AST ALT Alkaline Phosphatase Creatine Kinase 71 Troponin I < 0.02 B-Natriuretic Peptide Total Protein Albumin Urine Color Urine Appearance Urine pH Ur Specific Lehr Urine Protein Urine Glucose (UA) Urine Ketones Urine Blood Urine Nitrite Urine Bilirubin Urine Urobilinogen Ur Leukocyte Esterase Urine WBC (Auto) Urine RBC (Auto) Ur Epithelial Cells Urine Bacteria Urine Mucus Influenza A (Rapid) Influenza B (Rapid) Home Medications Medication Instructions Recorded Loratadine [Claritin] 10 mg PO PRN PRN 05/02/16 Fluticasone Prop 0.05% Nasal 1 - 2 spray NS DAILY 11/30/16 [Flonase -] Albuterol Sulfate Inhaler - 1 - 2 inh PO Q4H 07/11/18 [Ventolin Hfa Inhaler -] Amlodipine Besylate 5 mg PO DAILY 07/11/18 Hydrochlorothiazide 25 mg PO DAILY 07/11/18 Ibuprofen 600 mg PO QID PRN 07/11/18 Magnesium Oxide 400 mg PO DAILY 07/11/18 Metoclopramide HCl 10 mg PO QID PRN 07/11/18 Riboflavin (Vitamin B2) 400 mg PO DAILY 07/11/18 [Riboflavin] Tiotropium [place] [Spiriva 4 gm IH DAILY 07/11/18 Respimat] metFORMIN HCL [Metformin HCl] 500 mg PO DAILY 07/11/18 ASSESSMENT AND PLAN: This is a 58 year old woman with a history of HTN, type 2 DM, asthma, interstitial lung disease, lung nodules, GERD, migraine CARRERA, brain aneurysm who presented to the ED with fever, chills, cough, SOB, body aches, and weakness. 1. Acute hypoxic respiratory failure, sepsis (fever, tachycardia, tachypnea, leukocytosis) secondary to possible viral syndrome, possible influenza, possible early pneumonia - Will treat empirically with ceftriaxone, Zithromax, Tamiflu - IV fluid - Oxygen to maintain saturation >90% - Albuterol as needed - Check urine Legionella and Pneumococcus Ag - Check RSV - Sputum culture - Follow up blood cultures 2. Interstitial lung disease, asthma - Continue Spiriva - Albuterol nebs as needed - ? need for steroids - Pulmonary consult 3. HTN - Continue Norvasc, HCTZ 4. Type 2 DM - Hold metformin - Fingersticks with Novolog sliding scale 5. GERD 6. History of migraine headaches 7. History of brain aneurysm, clipping, craniotomy
[2018-07-11] MEDS: HYDROCHLOROTHIAZIDE 25 MG TABLET (FP) PO SCH (10:33)
[2018-07-11] MEDS: CEFTRIAXONE 1 GM in DEXTROSE 5%-WATER - 50 ML IVPB SCH (10:33)
[2018-07-11] MEDS ORDERED: amLODIPine BESYLATE 5 MG TABLET (FP) ONE (10:33)
[2018-07-11] MEDS: TIOTROPIUM BROMIDE 2.5 MCG (SPIRIVA) RESPIMAT INHALER IH SCH (10:33)
[2018-07-11] MEDS: MAGNESIUM OXIDE 400 MG TABLET (FP) PO SCH (10:33)
[2018-07-11] MEDS: amLODIPine BESYLATE 5 MG TABLET (FP) PO SCH (10:33)
[2018-07-11] MEDS ORDERED: HYDROCHLOROTHIAZIDE 25 MG TABLET (FP) ONE (10:33)
[2018-07-11] MEDS ORDERED: MAGNESIUM OXIDE 400 MG TABLET (FP) ONE (10:34)
[2018-07-11] MEDS: OSELTAMIVIR PHOSPHATE 75 MG CAPSULE PO SCH ×2 (10:35→22:16)
[2018-07-11] MEDS ORDERED: AZITHROMYCIN IVPB 500 MG/250 ML BAG IVPB ONE (10:35)
[2018-07-11] MEDS: AZITHROMYCIN IVPB 500 MG/250 ML BAG IVPB SCH (10:35)
[2018-07-11] MEDS: FLUTICASONE PROP 0.05% 16 GM NASAL SPRAY NS SCH (11:40)
--- NOTE | 2018-07-11 11:55 | EKG ---
Test Reason : Blood Pressure : / mmHG Vent. Rate : 098 BPM Atrial Rate : 098 BPM P-R Int : 140 ms QRS Dur : 088 ms QT Int : 344 ms P-R-T Axes : 047 -16 032 degrees QTc Int : 439 ms NORMAL SINUS RHYTHM MINIMAL VOLTAGE CRITERIA FOR LVH, MAY BE NORMAL VARIANT BORDERLINE ECG WHEN COMPARED WITH ECG OF 02-MAY-2016 17:56, NO SIGNIFICANT CHANGE WAS FOUND Confirmed by SATHYA VALDEZ, TONY ([id number]) on 07/11/2018 11:55:18 AM Referred By: Confirmed By:TONY MCDONNELL MD
[2018-07-11] MEDS: INSULIN SLIDING SCALE (NOVOLOG) 1 VIAL SQ SCH ×3 (12:19→22:16)
--- NOTE | 2018-07-11 16:22 | PN ---
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 HTN PLAN IV ABX,TAMIFLU INHALED BRONCHODILATORS MEDROL SUPPLEMENTAL O2 CULTURES FLU SCREEN CHECK AMBULATORY O2 SAT AT REST PRIOR TO DISCHARGE TO DETERMINE IF PT IS A CANDIDATE FOR HOME O2 OBTAIN RESULTS OF PERVIOUS LUNG BX FROM [facility] DR GORDON Problem List - Problems (1) Acute on chronic respiratory failure with hypoxemia Code(s): J96.21 - ACUTE AND CHRONIC RESPIRATORY FAILURE WITH HYPOXIA (2) GERD (gastroesophageal reflux disease) Code(s): K21.9 - GASTRO-ESOPHAGEAL REFLUX DISEASE WITHOUT ESOPHAGITIS Qualifiers: Esophagitis presence: esophagitis presence not specified Qualified Code(s) : K21.9 - Gastro-esophageal reflux disease without esophagitis (3) HTN (hypertension) Code(s): I10 - ESSENTIAL (PRIMARY) HYPERTENSION Qualifiers: Hypertension type: essential hypertension Qualified Code(s): I10 - Essential (primary) hypertension (4) History of lung biopsy Code(s): Z98.89 - OTHER SPECIFIED POSTPROCEDURAL STATES * DO NOT USE * (5) Acute hypoxemic respiratory failure Code(s): J96.01 - ACUTE RESPIRATORY FAILURE WITH HYPOXIA
[2018-07-11] MEDS ORDERED: methylPREDNISolone NA SUCC 40 MG/1 ML VIAL ONE (16:56)
[2018-07-11] MEDS: methylPREDNISolone NA SUCC 40 MG/1 ML VIAL IVPUSH SCH ×2 (16:56→20:26)
--- NOTE | 2018-07-11 17:10 | CONS ---
DATE OF CONSULTATION: 07/11/2018 PULMONARY CONSULTATION REFERRING PHYSICIAN: Boston Lainez M.D. 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 Patient complains of chest pain, hemoptysis, denies any abdominal pain. There is no history of recent travel. Patient presents to the emergency room with above. On admission, she was started on antibiotic therapy, inhaled bronchodilators and Tamiflu. The patient has a history of tobacco use, quit a few years ago. There is no history of occupational exposure to chemicals or fumes. There is no history of recent travel. There is no history of DVT or PE in the past. 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 REVIEW OF SYSTEMS: Positive cough. Positive shortness of breath. Positive fever. Positive chills. Positive weakness. No chest pain. No palpitations. No hemoptysis. Positive nausea and vomiting. No diarrhea. No lower extremity edema. CURRENT MEDICATIONS: Include vitamin B2, Tylenol, Mag-Ox, Zithromax, ceftriaxone, Spiriva, albuterol, flonase, Norvasc, NovoLog, Tamiflu, Reglan, Claritin, and hydrochlorothiazide. PHYSICAL EXAMINATION: GENERAL: The patient is a well-developed, well-nourished female, awake, alert, in no acute respiratory distress. She is afebrile. VITAL SIGNS: Blood pressure 104/56, respiratory rate 17, O2 saturation 97% on 2 L. HEENT: Normocephalic, atraumatic. NECK: Supple. HEART: Regular S1, S2. CHEST: Bilateral crackles, a few scattered bilateral rhonchi. ABDOMEN: Soft, bowel sounds positive. EXTREMITIES: No cyanosis, edema. LABORATORY: WBC is 12.0, hemoglobin 13.3, hematocrit 37.7 with platelet count of 282,000 and 85 polys, 7 lymphs, and 5 monos. Blood gas, pH 7.40, pCO2 of 39, pO2 of 56, bicarbonate 26, and saturation 87.6 on room air. Chemistry: BUN 19, creatinine 0.7, BNP is 120. Chest CT reveals extensive chronic lung disease, no acute infiltrates and/or effusions. Patient had a pulmonary function test on July 01 which reveals severe restriction and diffuse and capacity reduced , good response post bronchodilator to small airways. IMPRESSION: 1. Acute hypoxemia and respiratory failure more than likely secondary to viral infection versus pneumonia. 2. Possible pneumonia versus viral. 3. Advanced interstitial lung disease. Likely underlying obstructive airway disease with a longstanding history of tobacco use. 4. History of central nervous system aneurysm status post clips. 5. Hypertension. 6. History of pulmonary nodules, biopsies unknown results. PLAN: IV steroids, inhaled bronchodilators, supplemental O2 to maintain O2 saturation 90% or greater. Also antibiotic therapy, continue Tamiflu, obtain flu screens, sputum for CADD INSTRUCTOR, blood cultures, also check patient's O2 saturation and rest of post exercise prior to discharge to determine whether patient is a candidate for home O2, and also try to attempt to obtain results of patient's previous lung biopsy at [facility]. LEDY GORDON M.D. [id number]
[2018-07-11 18:41] VITALS: BMI 30.8
[2018-07-11] MEDS ORDERED: PT OWN MED DRAWER 7, Y5N ONE (20:23)
[2018-07-12] MEDS: methylPREDNISolone NA SUCC 40 MG/1 ML VIAL IVPUSH SCH ×4 (03:46→22:14)
[2018-07-12] MEDS: INSULIN SLIDING SCALE (NOVOLOG) 1 VIAL SQ SCH ×4 (06:10→22:14)
[2018-07-12 07:13] LABS: HEMATOCRIT 39.8 % (32.4-45.2); HEMOGLOBIN 13.9 GM/dL (10.7-15.3); MCHC 34.8 g/dl (32.0-36.0); MEAN PLT VOLUME 8.1 fl (7.5-11.1); MONO % 0.7 % (3.8-10.2); NEUT % 89.3 % (42.8-82.8); PLATELET COUNT 275 K/MM3 (134-434); RBC 4.47 M/mm3 (3.60-5.2); RDW 14.5 % (11.6-15.6); WHITE BLOOD COUNT 9.9 K/mm3 (4.0-10.0)
[2018-07-12 07:28] LABS: ALBUMIN 3.2 g/dl (3.4-5.0); ALK PHOS 74 U/L (45-117); ANION GAP 7 MMOL/L (8-16); BILIRUBIN,TOTAL 0.3 mg/dL (0.2-1); BLOOD UREA NITROGEN 12 mg/dL (7-18); CHLORIDE 108 mmol/L (98-107); CO2 27 mmol/L (21-32); CREATININE 0.6 mg/dL (0.55-1.3); GLUCOSE,RANDOM 144 mg/dL (74-106); MAGNESIUM 2.2 mg/dL (1.8-2.4); PHOSPHOROUS 4.6 mg/dL (2.5-4.9); POTASSIUM 4.1 mmol/L (3.5-5.1); SGOT/AST 18 U/L (15-37); SGPT/ALT 22 U/L (13-61); SODIUM 142 mmol/L (136-145); TOT PROT 8.3 g/dl (6.4-8.2)
[2018-07-12] MEDS ORDERED: DEXTROSE 5%-WATER - 50 ML IVPB ONE (09:08)
[2018-07-12] MEDS ORDERED: cefTRIAXone SODIUM 1 GM VIAL ONE (09:08)
[2018-07-12] MEDS: SODIUM CHLORIDE 1,000 ML IV SCH (09:21)
[2018-07-12] MEDS: AZITHROMYCIN IVPB 500 MG/250 ML BAG IVPB SCH (09:22)
[2018-07-12] MEDS: CEFTRIAXONE 1 GM in DEXTROSE 5%-WATER - 50 ML IVPB SCH (09:23)
[2018-07-12] MEDS: amLODIPine BESYLATE 5 MG TABLET (FP) PO SCH (09:24)
[2018-07-12] MEDS: HYDROCHLOROTHIAZIDE 25 MG TABLET (FP) PO SCH (09:24)
[2018-07-12] MEDS: OSELTAMIVIR PHOSPHATE 75 MG CAPSULE PO SCH ×2 (09:24→22:16)
[2018-07-12] MEDS: MAGNESIUM OXIDE 400 MG TABLET (FP) PO SCH (09:24)
[2018-07-12] MEDS: FLUTICASONE PROP 0.05% 16 GM NASAL SPRAY NS SCH (09:27)
[2018-07-12] MEDS: TIOTROPIUM BROMIDE 2.5 MCG (SPIRIVA) RESPIMAT INHALER IH SCH (09:36)
[2018-07-12] MEDS: RIBOFLAVIN 400 MG PO SCH (09:36)
--- NOTE | 2018-07-12 11:46 | PN ---
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
--- NOTE | 2018-07-12 15:31 | PN ---
Physical Exam: SUBJECTIVE: Patient seen and examined. She says she feels a little better. OBJECTIVE: Vital Signs Period Temp Pulse Resp BP Sys/Medeiros Pulse Ox Last 24 Hr 97.5 F-100.0 F 56-99 16-20 93-144/56-81 98-99 GENERAL: The patient is awake, alert, and fully oriented, in no acute distress. LUNGS: Breath sounds equal, clear to auscultation bilaterally, no wheezes, no crackles, no accessory muscle use. HEART: Regular rate and rhythm, S1, S2 without murmur, rub or gallop. ABDOMEN: Soft, nontender, nondistended, normoactive bowel sounds, no guarding, no rebound, no hepatosplenomegaly, no masses. EXTREMITIES: 2+ pulses, warm, well-perfused, no edema. Laboratory Results - last 24 hr 07/11/18 07/11/18 07/11/18 16:54 17:15 17:15 WBC RBC Hgb Hct MCV MCH MCHC RDW Plt Count MPV Absolute Neuts (auto) Neutrophils % Lymphocytes % Monocytes % Eosinophils % Basophils % Nucleated RBC % Sodium Potassium Chloride Carbon Dioxide Anion Gap BUN Creatinine Creat Clearance w eGFR POC Glucometer 97.29940 Random Glucose Calcium Phosphorus Magnesium Total Bilirubin AST ALT Alkaline Phosphatase Total Protein Albumin Influenza A (Rapid) Negative Influenza B (Rapid) Negative RSV Rapid Negative 07/11/18 07/12/18 07/12/18 22:15 06:07 06:30 WBC 9.9 RBC 4.47 Hgb 13.9 Hct 39.8 MCV 89.0 MCH 31.0 MCHC 34.8 RDW 14.5 Plt Count 275 MPV 8.1 Absolute Neuts (auto) 8.9 H Neutrophils % 89.3 H Lymphocytes % 10.0 D Monocytes % 0.7 L D Eosinophils % 0.0 D Basophils % 0.0 Nucleated RBC % 0 Sodium Potassium Chloride Carbon Dioxide Anion Gap BUN Creatinine Creat Clearance w eGFR POC Glucometer 145 149 Random Glucose Calcium Phosphorus Magnesium Total Bilirubin AST ALT Alkaline Phosphatase Total Protein Albumin Influenza A (Rapid) Influenza B (Rapid) RSV Rapid 07/12/18 07/12/18 06:30 11:29 WBC RBC Hgb Hct MCV MCH MCHC RDW Plt Count MPV Absolute Neuts (auto) Neutrophils % Lymphocytes % Monocytes % Eosinophils % Basophils % Nucleated RBC % Sodium 142 Potassium 4.1 Chloride 108 H Carbon Dioxide 27 Anion Gap 7 L BUN 12 Creatinine 0.6 Creat Clearance w eGFR > 60 POC Glucometer 291 Random Glucose 144 H Calcium 9.0 Phosphorus 4.6 Magnesium 2.2 Total Bilirubin 0.3 AST 18 ALT 22 Alkaline Phosphatase 74 Total Protein 8.3 H Albumin 3.2 L Influenza A (Rapid) Influenza B (Rapid) RSV Rapid Active Medications Generic Name Dose Route Start Last Admin Trade Name Freq PRN Reason Stop Dose Admin Acetaminophen 650 mg 07/11/18 08:41 07/11/18 20:25 Tylenol - PO 650 mg Q6H PRN Administration HEADACHE Albuterol Sulfate 1 amp 07/11/18 10:08 Ventolin 0.083% Nebulizer Soln - NEB Q4H PRN SHORT OF BREATH/WHEEZING Amlodipine Besylate 5 mg 07/11/18 10:00 07/12/18 09:24 Norvasc - PO 5 mg DAILY RENNY Administration Fluticasone Propionate 1 spray 07/11/18 10:00 07/12/18 09:27 Flonase - NS 1 spray DAILY RENNY Administration Hydrochlorothiazide 25 mg 07/11/18 10:00 07/12/18 09:24 Hctz - PO 25 mg DAILY RENNY Administration Azithromycin 500 mg in 250 mls @ 250 mls/hr 07/11/18 10:00 07/12/18 09:22 Zithromax 500mg Ivpb (Pre-Docked) IVPB 250 mls/hr DAILY RENNY Administration Ceftriaxone Sodium 1 gm/ 50 mls @ 100 mls/hr 07/11/18 10:00 07/12/18 09:23 Dextrose IVPB 100 mls/hr DAILY RENNY Administration Protocol Insulin Aspart 1 vial 07/11/18 11:00 07/12/18 11:56 Novolog Vial Sliding Scale - SQ 6 unit ACHS RENNY Administration Protocol Loratadine 10 mg 07/11/18 08:33 Claritin - PO DAILY PRN allergy Magnesium Oxide 400 mg 07/11/18 10:00 07/12/18 09:24 Mag-Ox - PO 400 mg DAILY RENNY Administration Methylprednisolone Sodium Succinate 40 mg 07/11/18 16:30 07/12/18 14:56 Solu-Medrol - IVPUSH 40 mg Q6H-IV RENNY Administration Metoclopramide HCl 10 mg 07/11/18 10:08 Reglan - PO QID PRN HEADACHE Non-Formulary Medication 400 mg 07/12/18 10:00 07/12/18 09:36 Riboflavin (Vitamin B2) [Riboflavin] PO 400 mg DAILY RENNY Administration Oseltamivir Phosphate 75 mg 07/11/18 10:00 07/12/18 09:24 Tamiflu - PO 07/15/18 22:01 75 mg BID RENNY Administration Tiotropium [place] 2 puff 07/11/18 10:00 07/12/18 09:36 Spiriva Respimat IH 2 puff DAILY RENNY Administration ASSESSMENT/PLAN: This is a 58 year old woman with a history of HTN, type 2 DM, asthma, interstitial lung disease, lung nodules, GERD, migraine CARRERA, brain aneurysm who presented to the ED with fever, chills, cough, SOB, body aches, and weakness. 1. Acute hypoxic respiratory failure; sepsis (fever, tachycardia, tachypnea, leukocytosis) secondary to possible viral syndrome, possible influenza, possible early pneumonia; asthma, ILD - Had temp 100.0 last night - WBC, tachycardia, tachypnea improved - Urine Legionella and Pneumococcus Ag negative - RSV negative - Rapid flu negative - Blood cultures negative after 24 hrs - Continue empiric treatment with ceftriaxone, Zithromax, Tamiflu - Continue Spiriva, SoluMedrol, albuterol as needed - Continue oxygen to maintain saturation >90% - Discontinue IV fluid 2. HTN - Continue Norvasc, HCTZ 3. Type 2 DM - Metformin held - Continue Novolog sliding scale 4. GERD 5. History of migraine headaches 6. History of brain aneurysm, clipping, craniotomy Visit type - Emergency Visit Emergency Visit: Yes ED Registration Date: 07/11/18 Care time: The patient presented to the Emergency Department on the above date and was hospitalized for further evaluation of their emergent condition. - New Patient This patient is new to me today: No - Critical Care Critical Care patient: No - Discharge Referral Referred to [facility] Med P.C.: No
[2018-07-12] MEDS ORDERED: PT OWN MED DRAWER 7, Y5N ONE (22:01)
[2018-07-13] MEDS: methylPREDNISolone NA SUCC 40 MG/1 ML VIAL IVPUSH SCH ×4 (04:25→21:25)
[2018-07-13] MEDS: INSULIN SLIDING SCALE (NOVOLOG) 1 VIAL SQ SCH ×4 (06:39→21:25)
[2018-07-13 07:52] LABS: HEMATOCRIT 36.3 % (32.4-45.2); HEMOGLOBIN 12.6 GM/dL (10.7-15.3); LYMPH % 6.3 % (8-40); MCH 31.3 pg (25.7-33.7); MCHC 34.8 g/dl (32.0-36.0); MEAN CELL VOLUME 89.8 fl (80-96); MEAN PLT VOLUME 8.2 fl (7.5-11.1); MONO % 2.3 % (3.8-10.2); NEUT % 91.4 % (42.8-82.8); PLATELET COUNT 272 K/MM3 (134-434); RBC 4.04 M/mm3 (3.60-5.2); RDW 14.3 % (11.6-15.6); WHITE BLOOD COUNT 15.9 K/mm3 (4.0-10.0)
[2018-07-13 07:56] LABS: ANION GAP 7 MMOL/L (8-16); BLOOD UREA NITROGEN 15 mg/dL (7-18); CHLORIDE 106 mmol/L (98-107); CO2 28 mmol/L (21-32); CREATININE 0.6 mg/dL (0.55-1.3); GLUCOSE,RANDOM 228 mg/dL (74-106); POTASSIUM 3.8 mmol/L (3.5-5.1); SODIUM 141 mmol/L (136-145)
[2018-07-13] MEDS ORDERED: PT OWN MED DRAWER 7, Y5N ONE ×2 (09:02→21:19)
[2018-07-13] MEDS ORDERED: cefTRIAXone SODIUM 1 GM VIAL ONE (09:03)
[2018-07-13] MEDS ORDERED: DEXTROSE 5%-WATER - 50 ML IVPB ONE (09:03)
[2018-07-13] MEDS: RIBOFLAVIN 400 MG PO SCH (09:10)
[2018-07-13] MEDS: FLUTICASONE PROP 0.05% 16 GM NASAL SPRAY NS SCH (09:10)
[2018-07-13] MEDS: TIOTROPIUM BROMIDE 2.5 MCG (SPIRIVA) RESPIMAT INHALER IH SCH (09:10)
[2018-07-13] MEDS: AZITHROMYCIN IVPB 500 MG/250 ML BAG IVPB SCH (09:11)
[2018-07-13] MEDS: CEFTRIAXONE 1 GM in DEXTROSE 5%-WATER - 50 ML IVPB SCH (09:11)
[2018-07-13] MEDS: amLODIPine BESYLATE 5 MG TABLET (FP) PO SCH (09:12)
[2018-07-13] MEDS: MAGNESIUM OXIDE 400 MG TABLET (FP) PO SCH (09:12)
[2018-07-13] MEDS: HYDROCHLOROTHIAZIDE 25 MG TABLET (FP) PO SCH (09:12)
[2018-07-13] MEDS: OSELTAMIVIR PHOSPHATE 75 MG CAPSULE PO SCH ×2 (09:12→21:25)
--- NOTE | 2018-07-13 09:27 | PN ---
Physical Exam: SUBJECTIVE: Patient seen and examined this AM. She states she has occasional chest tightness with SOB but otherwise feels much better. She is wondering when she will be able to go home. OBJECTIVE: Vital Signs Period Temp Pulse Resp BP Sys/Medeiros Pulse Ox Last 24 Hr 97.6 F-98.2 F 52-92 18-20 104-119/54-83 99 GENERAL: A&O, no acute distress HEAD: Normocephalic, atraumatic. EYES: no scleral icterus EARS, NOSE, THROAT: oropharynx clear without exudates. Moist mucous membranes. NECK: supple without lymphadenopathy LUNGS: CTA b/l, no crackles or wheezes HEART: Regular rate and rhythm, normal S1 and S2 without murmur ABDOMEN: Soft, nontender to palpation, normoactive bowel sounds EXTREMITIES: warm, well-perfused. No peripheral edema. NEUROLOGICAL: Cranial nerves II-XII grossly intact. Normal speech. Laboratory Results - last 24 hr 07/12/18 07/12/18 07/12/18 11:29 16:27 22:10 WBC RBC Hgb Hct MCV MCH MCHC RDW Plt Count MPV Absolute Neuts (auto) Neutrophils % Lymphocytes % Monocytes % Eosinophils % Basophils % Nucleated RBC % Sodium Potassium Chloride Carbon Dioxide Anion Gap BUN Creatinine Creat Clearance w eGFR POC Glucometer 291 125 162 Random Glucose Calcium 07/13/18 07/13/18 07/13/18 06:34 07:00 07:00 WBC 15.9 H RBC 4.04 Hgb 12.6 Hct 36.3 MCV 89.8 MCH 31.3 MCHC 34.8 RDW 14.3 Plt Count 272 MPV 8.2 Absolute Neuts (auto) 14.5 H Neutrophils % 91.4 H Lymphocytes % 6.3 L D Monocytes % 2.3 L D Eosinophils % 0.0 Basophils % 0.0 Nucleated RBC % 0 Sodium 141 Potassium 3.8 Chloride 106 Carbon Dioxide 28 Anion Gap 7 L BUN 15 Creatinine 0.6 Creat Clearance w eGFR > 60 POC Glucometer 254 Random Glucose 228 H Calcium 9.0 Active Medications Generic Name Dose Route Start Last Admin Trade Name Freq PRN Reason Stop Dose Admin Acetaminophen 650 mg 07/11/18 08:41 07/11/18 20:25 Tylenol - PO 650 mg Q6H PRN Administration HEADACHE Albuterol Sulfate 1 amp 07/11/18 10:08 Ventolin 0.083% Nebulizer Soln - NEB Q4H PRN SHORT OF BREATH/WHEEZING Amlodipine Besylate 5 mg 07/11/18 10:00 07/12/18 09:24 Norvasc - PO 5 mg DAILY RENNY Administration Fluticasone Propionate 1 spray 07/11/18 10:00 07/12/18 09:27 Flonase - NS 1 spray DAILY RENNY Administration Hydrochlorothiazide 25 mg 07/11/18 10:00 07/12/18 09:24 Hctz - PO 25 mg DAILY RENNY Administration Azithromycin 500 mg in 250 mls @ 250 mls/hr 07/11/18 10:00 07/12/18 09:22 Zithromax 500mg Ivpb (Pre-Docked) IVPB 250 mls/hr DAILY RENNY Administration Ceftriaxone Sodium 1 gm/ 50 mls @ 100 mls/hr 07/11/18 10:00 07/12/18 09:23 Dextrose IVPB 100 mls/hr DAILY RENNY Administration Protocol Insulin Aspart 1 vial 07/11/18 11:00 07/13/18 06:39 Novolog Vial Sliding Scale - SQ 6 unit ACHS RENNY Administration Protocol Loratadine 10 mg 07/11/18 08:33 Claritin - PO DAILY PRN allergy Magnesium Oxide 400 mg 07/11/18 10:00 07/12/18 09:24 Mag-Ox - PO 400 mg DAILY RENNY Administration Methylprednisolone Sodium Succinate 40 mg 07/11/18 16:30 07/13/18 04:25 Solu-Medrol - IVPUSH 40 mg Q6H-IV RENNY Administration Metoclopramide HCl 10 mg 07/11/18 10:08 Reglan - PO QID PRN HEADACHE Non-Formulary Medication 400 mg 07/12/18 10:00 07/12/18 09:36 Riboflavin (Vitamin B2) [Riboflavin] PO 400 mg DAILY RENNY Administration Oseltamivir Phosphate 75 mg 07/11/18 10:00 07/12/18 22:16 Tamiflu - PO 07/15/18 22:01 75 mg BID RENNY Administration Tiotropium [place] 2 puff 07/11/18 10:00 07/12/18 09:36 Spiriva Respimat IH 2 puff DAILY RENNY Administration ASSESSMENT/PLAN: 58 year old woman with a history of HTN, type 2 DM, asthma, interstitial lung disease, lung nodules, GERD, migraine CARRERA, brain aneurysm who presented to the ED with fever, chills, cough, SOB, body aches, and weakness. Acute Hypoxic Respiratory Failure with sepsis (resolved) secondary to viral syndrome vs Pneumonia -Flu, RSV, legionella, urine/blood cx negative -Leukocytosis noted, possibly secondary to SoluMedrol -Intermittent O2 supplementation required -Rocephin, Azithromycin, Tamiflu -Spiriva, Albuterol NEBs, SoluMedrol 40mg IV Q6, can likely decrease to BID HTN -HCTZ 25 mg PO Daily -Norvasc 5 mg PO Daily NIDDM -Hold home metformin -BGMs ACHS -Insulin Sliding scale DVT Prophylaxis -Lovenox 40 mg SQ Daily FEN -Fluids: none -Electrolytes: No electrolyte abnormalities, BMP in AM -Nutrition: Diabetic Diet Disposition Telemetry Visit type - Emergency Visit Emergency Visit: Yes ED Registration Date: 07/11/18 Care time: The patient presented to the Emergency Department on the above date and was hospitalized for further evaluation of their emergent condition. - New Patient This patient is new to me today: Yes Date on this admission: 07/13/18 - Critical Care Critical Care patient: No
[2018-07-13] MEDS: ENOXAPARIN NA (PORCINE) 40 MG/0.4 ML DISP.SYRIN SQ SCH (09:49)
[2018-07-13] MEDS: ACETAMINOPHEN 325 MG TABLET (FP) PO PRN (10:50)
[2018-07-13 11:04] LABS: PLATELET ESTIMATE ADEQUATE
--- NOTE | 2018-07-13 11:42 | PN ---
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
--- NOTE | 2018-07-13 16:26 | PN ---
Teaching Attending Note Name of Resident: Jony Cheng ATTENDING PHYSICIAN STATEMENT I saw and evaluated the patient. I reviewed the resident's note and discussed the case with the resident. I agree with the resident's findings and plan as documented. SUBJECTIVE: Patient feels much better - she just reports occasional SOB with exertion. OBJECTIVE: Vital Signs Period Temp Pulse Resp BP Sys/Medeiros Pulse Ox Last 24 Hr 97.6 F-98.2 F 52-72 18-20 104-117/54-83 94-99 HEART: S1S2, RRR LUNGS: Clear ABDOMEN: Soft, non-tender, non-distended, normal BS EXTREMITIES: No edema Laboratory Results - last 24 hr 07/12/18 07/12/18 07/13/18 16:27 22:10 06:34 WBC RBC Hgb Hct MCV MCH MCHC RDW Plt Count MPV Absolute Neuts (auto) Neutrophils % Neutrophils % (Manual) Band Neutrophils % Lymphocytes % Lymphocytes % (Manual) Monocytes % Monocytes % (Manual) Eosinophils % Eosinophils % (Manual) Basophils % Basophils % (Manual) Myelocytes % (Man) Promyelocytes % (Man) Blast Cells % (Manual) Nucleated RBC % Metamyelocytes Platelet Estimate Sodium Potassium Chloride Carbon Dioxide Anion Gap BUN Creatinine Creat Clearance w eGFR POC Glucometer 125 162 254 Random Glucose Calcium 07/13/18 07/13/18 07/13/18 07:00 07:00 11:34 WBC 15.9 H RBC 4.04 Hgb 12.6 Hct 36.3 MCV 89.8 MCH 31.3 MCHC 34.8 RDW 14.3 Plt Count 272 MPV 8.2 Absolute Neuts (auto) 14.5 H Neutrophils % 91.4 H Neutrophils % (Manual) 96.9 H Band Neutrophils % 0.0 Lymphocytes % 6.3 L D Lymphocytes % (Manual) 3.1 L Monocytes % 2.3 L D Monocytes % (Manual) 0 L Eosinophils % 0.0 Eosinophils % (Manual) 0.0 Basophils % 0.0 Basophils % (Manual) 0.0 Myelocytes % (Man) 0 Promyelocytes % (Man) 0 Blast Cells % (Manual) 0 Nucleated RBC % 0 Metamyelocytes 0 Platelet Estimate Adequate Sodium 141 Potassium 3.8 Chloride 106 Carbon Dioxide 28 Anion Gap 7 L BUN 15 Creatinine 0.6 Creat Clearance w eGFR > 60 POC Glucometer 187 Random Glucose 228 H Calcium 9.0 Current Medications Generic Name Dose Route Start Last Admin Trade Name Freq PRN Reason Stop Dose Admin Acetaminophen 650 mg 07/11/18 08:41 07/13/18 10:50 Tylenol - PO 650 mg Q6H PRN Administration HEADACHE Albuterol Sulfate 1 amp 07/11/18 10:08 Ventolin 0.083% Nebulizer Soln - NEB Q4H PRN SHORT OF BREATH/WHEEZING Amlodipine Besylate 5 mg 07/11/18 10:00 07/13/18 09:12 Norvasc - PO 5 mg DAILY RENNY Administration Enoxaparin Sodium 40 mg 07/13/18 10:00 07/13/18 09:49 Lovenox - SQ 40 mg DAILY RENNY Administration Fluticasone Propionate 1 spray 07/11/18 10:00 07/13/18 09:10 Flonase - NS 1 spray DAILY RENNY Administration Hydrochlorothiazide 25 mg 07/11/18 10:00 07/13/18 09:12 Hctz - PO 25 mg DAILY RENNY Administration Azithromycin 500 mg in 250 mls @ 250 mls/hr 07/11/18 10:00 07/13/18 09:11 Zithromax 500mg Ivpb (Pre-Docked) IVPB 250 mls/hr DAILY RENNY Administration Ceftriaxone Sodium 1 gm/ 50 mls @ 100 mls/hr 07/11/18 10:00 07/13/18 09:11 Dextrose IVPB 100 mls/hr DAILY RENNY Administration Protocol Insulin Aspart 1 vial 07/11/18 11:00 07/13/18 11:41 Novolog Vial Sliding Scale - SQ 2 unit ACHS RENNY Administration Protocol Loratadine 10 mg 07/11/18 08:33 Claritin - PO DAILY PRN allergy Magnesium Oxide 400 mg 07/11/18 10:00 07/13/18 09:12 Mag-Ox - PO 400 mg DAILY RENNY Administration Methylprednisolone Sodium Succinate 40 mg 07/13/18 10:00 07/13/18 10:10 Solu-Medrol - IVPUSH Not Given BID RENNY Metoclopramide HCl 10 mg 07/11/18 10:08 07/13/18 09:17 Reglan - PO 10 mg QID PRN Administration HEADACHE Non-Formulary Medication 400 mg 07/12/18 10:00 07/13/18 09:10 Riboflavin (Vitamin B2) [Riboflavin] PO 400 mg DAILY RENNY Administration Oseltamivir Phosphate 75 mg 07/11/18 10:00 07/13/18 09:12 Tamiflu - PO 07/15/18 22:01 75 mg BID RENNY Administration Tiotropium [place] 2 puff 07/11/18 10:00 07/13/18 09:10 Spiriva Respimat IH 2 puff DAILY RENNY Administration ASSESSMENT AND PLAN: This is a 58 year old woman with a history of HTN, type 2 DM, asthma, interstitial lung disease, lung nodules, GERD, migraine CARRERA, brain aneurysm who presented to the ED with fever, chills, cough, SOB, body aches, and weakness. 1. Acute hypoxic respiratory failure; sepsis (fever, tachycardia, tachypnea, leukocytosis) secondary to possible viral syndrome, possible influenza, possible early pneumonia; asthma, ILD - Afebrile - Urine Legionella and Pneumococcus Ag negative - RSV negative - Rapid flu negative - Blood cultures negative after 24 hrs - Continue empiric treatment with ceftriaxone, Zithromax, Tamiflu - Taper SoluMedrol - Continue Spiriva, albuterol as needed - Continue oxygen to maintain saturation >90% 2. HTN - Continue Norvasc, HCTZ 3. Type 2 DM - Metformin held - Continue Novolog sliding scale 4. GERD 5. History of migraine headaches 6. History of brain aneurysm and clipping
[2018-07-13] MEDS: ALBUTEROL SO4 0.083% IH SOL 2.5 MG/3 ML VIAL.NEB. NEB PRN (20:30)
[2018-07-14] MEDS: INSULIN SLIDING SCALE (NOVOLOG) 1 VIAL SQ SCH ×3 (06:17→17:01)
--- NOTE | 2018-07-14 07:35 | PN ---
Teaching Attending Note Name of Resident: Jony Cheng ATTENDING PHYSICIAN STATEMENT I saw and evaluated the patient. I reviewed the resident's note and discussed the case with the resident. I agree with the resident's findings and plan as documented. SUBJECTIVE:Patient feels less SOB not in distress OBJECTIVE: Vital Signs Period Temp Pulse Resp BP Sys/Medeiros Pulse Ox Last 24 Hr 97.7 F-98.1 F 61-68 18-20 110-131/65-80 94-94 Middle aged F not in distress HEENT: MM moist, no anemia, PERRLA , EOMI NECK; No JVd No Bruit CHEST: Non tender, B/L Wheezes CVS: S1S2 R no m/g/r ABD: No distention, non tender EXT: Trace el afeet, no calf tenderness [employer]: AOx3 : Non focal LABS: CBC, BMP 07/14/18 06:17 07/14/18 06:17 Active Medications Acetaminophen (Tylenol -) 650 mg PO Q6H PRN PRN Reason: HEADACHE Last Admin: 07/13/18 10:50 Dose: 650 mg Albuterol Sulfate (Ventolin 0.083% Nebulizer Soln -) 1 amp NEB Q4H PRN PRN Reason: SHORT OF BREATH/WHEEZING Last Admin: 07/14/18 09:57 Dose: 1 amp Amlodipine Besylate (Norvasc -) 5 mg PO DAILY [facility] Last Admin: 07/14/18 10:00 Dose: 5 mg Enoxaparin Sodium (Lovenox -) 40 mg SQ DAILY RENNY Last Admin: 07/14/18 10:00 Dose: Not Given Fluticasone Propionate (Flonase -) 1 spray NS DAILY [facility] Last Admin: 07/14/18 09:58 Dose: 1 spray Hydrochlorothiazide (Hctz -) 25 mg PO DAILY [facility] Last Admin: 07/14/18 10:00 Dose: 25 mg Azithromycin (Zithromax 500mg Ivpb (Pre-Docked)) 500 mg in 250 mls @ 250 mls/ hr IVPB DAILY [facility] Last Admin: 07/14/18 09:33 Dose: Not Given Ceftriaxone Sodium 1 gm/ (Dextrose) 50 mls @ 100 mls/hr IVPB DAILY RENNY; Protocol Last Admin: 07/14/18 09:33 Dose: Not Given Insulin Aspart (Novolog Vial Sliding Scale -) 1 vial SQ ACHS RENNY; Protocol Last Admin: 07/14/18 11:25 Dose: 2 units Loratadine (Claritin -) 10 mg PO DAILY PRN PRN Reason: allergy Magnesium Oxide (Mag-Ox -) 400 mg PO DAILY [facility] Last Admin: 07/14/18 10:00 Dose: 400 mg Metoclopramide HCl (Reglan -) 10 mg PO QID PRN PRN Reason: HEADACHE Last Admin: 07/13/18 09:17 Dose: 10 mg Non-Formulary Medication (Riboflavin (Vitamin B2) [Riboflavin]) 400 mg PO DAILY [facility] Last Admin: 07/14/18 09:59 Dose: 400 mg Pantoprazole Sodium (Protonix -) 40 mg PO DAILY [facility] Last Admin: 07/14/18 10:00 Dose: 40 mg Prednisone (Deltasone -) 40 mg PO DAILY [facility] Last Admin: 07/14/18 10:00 Dose: 40 mg Tiotropium [place] (Spiriva Respimat) 2 puff IH DAILY [facility] Last Admin: 07/14/18 09:58 Dose: 2 puff ASSESSMENT AND PLAN:58 year old woman with a history of HTN, type 2 DM, asthma, ILD, lung nodules, GERD, migraine CARRERA, brain aneurysm who presented to the ED with fever, chills, cough, SOB, body aches, and weakness. 1. Acute hypoxic respiratory failure: Improved most so far infectious w/u is -ve , on PO prednisone , can be switched to PO azithromycin and Augmention, cont Nebs and Spiriva, can be discharged after Pulmonary clearance 2. HTN - Well controlled Norvasc, HCTZ 3. Type 2 DM - Resume home meds on DC add 2.5 Glipizide in am to control steroid induced Hyperglycemia tilkl patient is on Steroids - Continue Novolog sliding scale during hospitalization. 4. GERD: Cont PPI 5. Migraine no active issue 6. History of brain aneurysm and clipping
[2018-07-14 08:13] LABS: ANION GAP 6 MMOL/L (8-16); BLOOD UREA NITROGEN 20 mg/dL (7-18); CALCIUM 8.6 mg/dL (8.5-10.1); CHLORIDE 105 mmol/L (98-107); CO2 28 mmol/L (21-32); CREATININE 0.6 mg/dL (0.55-1.3); GLUCOSE,RANDOM 140 mg/dL (74-106); MAGNESIUM 2.4 mg/dL (1.8-2.4); PHOSPHOROUS 3.6 mg/dL (2.5-4.9); SODIUM 139 mmol/L (136-145)
[2018-07-14 08:46] LABS: BASO % 0.3 % (0-2.0); HEMATOCRIT 38.7 % (32.4-45.2); HEMOGLOBIN 13.5 GM/dL (10.7-15.3); LYMPH % 10.7 % (8-40); MCH 30.6 pg (25.7-33.7); MCHC 34.8 g/dl (32.0-36.0); MONO % 2.8 % (3.8-10.2); NEUT % 86.2 % (42.8-82.8); RBC 4.39 M/mm3 (3.60-5.2); RDW 14.2 % (11.6-15.6); WHITE BLOOD COUNT 13.8 K/mm3 (4.0-10.0)
[2018-07-14] MEDS: AZITHROMYCIN IVPB 500 MG/250 ML BAG IVPB SCH (09:33)
[2018-07-14] MEDS: CEFTRIAXONE 1 GM in DEXTROSE 5%-WATER - 50 ML IVPB SCH (09:33)
[2018-07-14] MEDS: ALBUTEROL SO4 0.083% IH SOL 2.5 MG/3 ML VIAL.NEB. NEB PRN (09:57)
[2018-07-14] MEDS: FLUTICASONE PROP 0.05% 16 GM NASAL SPRAY NS SCH (09:58)
[2018-07-14] MEDS: TIOTROPIUM BROMIDE 2.5 MCG (SPIRIVA) RESPIMAT INHALER IH SCH (09:58)
[2018-07-14] MEDS: RIBOFLAVIN 400 MG PO SCH (09:59)
[2018-07-14] MEDS: ENOXAPARIN NA (PORCINE) 40 MG/0.4 ML DISP.SYRIN SQ SCH (10:00)
[2018-07-14] MEDS: MAGNESIUM OXIDE 400 MG TABLET (FP) PO SCH (10:00)
[2018-07-14] MEDS ORDERED: PANTOPRAZOLE 40 MG TABLET (FP) PO SCH (10:00)
[2018-07-14] MEDS ORDERED: predniSONE 20 MG TABLET (UD) PO SCH (10:00)
[2018-07-14] MEDS: HYDROCHLOROTHIAZIDE 25 MG TABLET (FP) PO SCH (10:00)
[2018-07-14] MEDS: amLODIPine BESYLATE 5 MG TABLET (FP) PO SCH (10:00)
[2018-07-14 10:10] VITALS: BP 129/83; PULSE 82; TEMP 98.1
--- NOTE | 2018-07-14 12:35 | DS ---
Physical Exam: SUBJECTIVE: Patient seen and examined this AM. She states she is doing well and still has a cough but is otherwise at her baseline. She states she would like to go home if possible. OBJECTIVE: Vital Signs Period Temp Pulse Resp BP Sys/Medeiros Pulse Ox Last 24 Hr 97.7 F-98.1 F 61-93 18-19 117-131/69-83 94-97 PHYSICAL EXAM GENERAL: A&O, no acute distress HEAD: Normocephalic, atraumatic. EYES: no scleral icterus EARS, NOSE, THROAT: oropharynx clear without exudates. Moist mucous membranes. NECK: supple without lymphadenopathy LUNGS: CTA b/l, no crackles or wheezes HEART: Regular rate and rhythm, normal S1 and S2 without murmur ABDOMEN: Soft, nontender to palpation, normoactive bowel sounds EXTREMITIES: warm, well-perfused. No peripheral edema. NEUROLOGICAL: Cranial nerves II-XII grossly intact. Normal speech. LABS Laboratory Results - last 24 hr 07/13/18 07/13/18 07/14/18 16:38 21:24 06:16 WBC RBC Hgb Hct MCV MCH MCHC RDW Absolute Neuts (auto) Neutrophils % Lymphocytes % Monocytes % Eosinophils % Basophils % Nucleated RBC % Sodium Potassium Chloride Carbon Dioxide Anion Gap BUN Creatinine Creat Clearance w eGFR POC Glucometer 140 173 143 Random Glucose Calcium Phosphorus Magnesium 07/14/18 07/14/18 07/14/18 06:17 06:17 11:23 WBC 13.8 H RBC 4.39 Hgb 13.5 Hct 38.7 MCV 88.0 MCH 30.6 MCHC 34.8 RDW 14.2 Absolute Neuts (auto) 11.9 H Neutrophils % 86.2 H Lymphocytes % 10.7 D Monocytes % 2.8 L Eosinophils % 0.0 Basophils % 0.3 D Nucleated RBC % 0 Sodium 139 Potassium 4.0 Chloride 105 Carbon Dioxide 28 Anion Gap 6 L BUN 20 H Creatinine 0.6 Creat Clearance w eGFR > 60 POC Glucometer 155 Random Glucose 140 H Calcium 8.6 Phosphorus 3.6 Magnesium 2.4 HOSPITAL COURSE: Date of Admission:07/11/18 Date of Discharge: 07/14/18 HPI on Admission: Patient is a 58 year old female was brought in to the ED by her son with the chief complaint of Fever and malaise x 1 day. As per the patient, she was apparently well until yesterday afternoon, she came back from work took a nap and woke up with fever Temp 103.1 F, associated with malaise, generalized weakness. Took a dose of Ibuprofen at home for fever with slight relief. She stood up and had urinary incontinence (patient reports her bladder is weak) . No urinary symptoms. She also mentions her cough is getting worse, mostly dry and worsening shortness of breath on exertion. Has been using Albuterol inhaler more frequently then before since few weeks. Uses at least 3 times while at work. Patient also had nausea and one episode of NBNB vomiting hence came in to the ED for further evaluation and treatment. Denies any sick contact. Last BM yesterday. Sleep normal. Appetite decreased since her illness. In the ED, now complaining of abdominal pain, in the epigastric area, 4/10 in intensity, intermittent, non radiating associated with nausea. Also reports to have chills and malaise, has layers of warm blankets and jackets on her. Patient was admitted at [facility] in 2016 for CAP and fractured ribs s/p fall. Patient reports she has a h/o lung problems, had a biopsy done in 05/02 at [facility] but doesn't know the results. 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 She improved and was deemed medically safe for discharge. Of note a pre/post was performed by respiratory and the patient required supplemental O2 (2L with activity). She was instructed to follow up with her primary care and pulmonology who may deem that she no longer requires O2 if she continues to improve. Minutes to complete discharge: 35 Discharge Summary Reason For Visit: FEVER Current Active Problems Pneumonia (Acute) Sepsis (Acute) Condition: Stable - Instructions Diet, Activity, Other Instructions: You were admitted to the hospital for a possible pneumonia or COPD exacerbation. You were treated with steroids and antibiotics and greatly improved. At this time you are medically safe for discharge. You also require oxygen when walking around and being active for now. You should continue all of your home medications as they are prescribed You should also take 3 more days of the Prednisone 40 mg per day You should also take 4 more days of antibiotics, Azithromycin once per day and Augmentin once in the morning and once at night. These medications have been sent to your pharmacy You should follow up with your primary care physician within one week. You should follow up with your dredge pump operator within one week as well. You may not require Oxygen therapy correction and they can decide if you still require it when you see them in the office. If you have any severe shortness of breath, or any other concerning symptoms, you should be seen by your doctor or return to the emergency department. Referrals: Amadneep Byrd MD [Staff Physician] - Disposition: HOME - Home Medications Comprehensive Discharge Medication List: Ambulatory Orders Loratadine [Claritin] 10 mg PO PRN PRN 05/02/16 Fluticasone Prop 0.05% Nasal [Flonase -] 1 - 2 spray NS DAILY 11/30/16 Albuterol Sulfate Inhaler - [Ventolin HFA Inhaler -] 1 - 2 inh PO Q4H 07/11/18 Amlodipine Besylate 5 mg PO DAILY 07/11/18 Hydrochlorothiazide 25 mg PO DAILY 07/11/18 Ibuprofen 600 mg PO QID PRN 07/11/18 Magnesium Oxide 400 mg PO DAILY 07/11/18 Metoclopramide HCl 10 mg PO QID PRN 07/11/18 Riboflavin (Vitamin B2) [Riboflavin] 400 mg PO DAILY 07/11/18 Tiotropium [place] [Spiriva Respimat] 4 gm IH DAILY 07/11/18 metFORMIN HCL [Metformin HCl] 500 mg PO DAILY 07/11/18 Pantoprazole Sodium [Protonix] 40 mg PO DAILY 07/13/18 Amox-Tr/K Cl [Augmentin - 875Mg Tablet] 1 tab PO BID #8 tablet 07/14/18 Azithromycin [Zithromax] 500 mg PO DAILY #4 tablet 07/14/18 predniSONE [Deltasone -] 20 mg PO DAILY #6 tablet 07/14/18 This patient is new to me today: No Emergency Visit: Yes ED Registration Date: 07/11/18 Care time: The patient presented to the Emergency Department on the above date and was hospitalized for further evaluation of their emergent condition. Critical Care patient: No - Discharge Referral Referred to [facility] Med P.C.: No
[2018-07-14 12:43] LABS: MEAN PLT VOLUME 9.3 fl (7.5-11.1); PLATELET COUNT 170 K/MM3 (134-434)
--- NOTE | 2018-07-14 14:05 | PN ---
Progress Note (short form) - Note Progress Note: PULMONARY Feels better but not at baseline. Able to ambulate. Vital Signs Period Temp Pulse Resp BP Sys/Medeiros Pulse Ox Last 24 Hr 97.7 F-98.1 F 61-93 18-19 117-131/69-83 94-97 Gen: NAD at rest Heart: RRR Lung: bibasilar rales Abd: soft, nontender Ext: no edema CBC, BMP 07/14/18 06:17 07/14/18 06:17 Active Medications Acetaminophen (Tylenol -) 650 mg PO Q6H PRN PRN Reason: HEADACHE Last Admin: 07/13/18 10:50 Dose: 650 mg Albuterol Sulfate (Ventolin 0.083% Nebulizer Soln -) 1 amp NEB Q4H PRN PRN Reason: SHORT OF BREATH/WHEEZING Last Admin: 07/14/18 09:57 Dose: 1 amp Amlodipine Besylate (Norvasc -) 5 mg PO DAILY [facility] Last Admin: 07/14/18 10:00 Dose: 5 mg Enoxaparin Sodium (Lovenox -) 40 mg SQ DAILY [facility] Last Admin: 07/14/18 10:00 Dose: Not Given Fluticasone Propionate (Flonase -) 1 spray NS DAILY [facility] Last Admin: 07/14/18 09:58 Dose: 1 spray Hydrochlorothiazide (Hctz -) 25 mg PO DAILY [facility] Last Admin: 07/14/18 10:00 Dose: 25 mg Azithromycin (Zithromax 500mg Ivpb (Pre-Docked)) 500 mg in 250 mls @ 250 mls/ hr IVPB DAILY [facility] Last Admin: 07/14/18 09:33 Dose: Not Given Ceftriaxone Sodium 1 gm/ (Dextrose) 50 mls @ 100 mls/hr IVPB DAILY [facility]; Protocol Last Admin: 07/14/18 09:33 Dose: Not Given Insulin Aspart (Novolog Vial Sliding Scale -) 1 vial SQ ACHS [facility]; Protocol Last Admin: 07/14/18 11:25 Dose: 2 units Loratadine (Claritin -) 10 mg PO DAILY PRN PRN Reason: allergy Magnesium Oxide (Mag-Ox -) 400 mg PO DAILY [facility] Last Admin: 07/14/18 10:00 Dose: 400 mg Metoclopramide HCl (Reglan -) 10 mg PO QID PRN PRN Reason: HEADACHE Last Admin: 07/13/18 09:17 Dose: 10 mg Non-Formulary Medication (Riboflavin (Vitamin B2) [Riboflavin]) 400 mg PO DAILY [facility] Last Admin: 07/14/18 09:59 Dose: 400 mg Pantoprazole Sodium (Protonix -) 40 mg PO DAILY [facility] Last Admin: 07/14/18 10:00 Dose: 40 mg Prednisone (Deltasone -) 40 mg PO DAILY [facility] Last Admin: 07/14/18 10:00 Dose: 40 mg Tiotropium [place] (Spiriva Respimat) 2 puff IH DAILY [facility] Last Admin: 07/14/18 09:58 Dose: 2 puff A/P Acute Hypoxic Respiratory Failure improving Interstitial Lung Disease r/o Pneumonia h/o Cerebral Aneurysm HTN - agree with prednisone taper - inhaled bronchodilators - complete antibiotics - will need outpt f/u and work up of ILD - DVT prophylaxis - can discharge home from pulmonary standpoint
== END 2018-07-14 17:54 | disposition home or self-care (01) | DRG 720 ==
LOC: JER 23:34 → JERBED 07-11 02:12 → UNDOADMIN 07-11 02:12 → JERBED 07-11 08:13 → J4S 07-11 17:51
PROVIDERS: ADMIT Internal Medicine; ATTEND Internal Medicine
DX: A41.9 Sepsis, unspecified organism (principal); J96.01 Acute respiratory failure with hypoxia; J84.9 Interstitial pulmonary disease, unspecified; J45.901 Unspecified asthma with (acute) exacerbation; J18.9 Pneumonia, unspecified organism; I10 Essential (primary) hypertension; K21.9 Gastro-esophageal reflux disease without esophagitis; J45.909 Unspecified asthma, uncomplicated; G43.909 Migraine, unspecified, not intractable, without status migrainosus; E11.9 Type 2 diabetes mellitus without complications; Z79.84 Long term (current) use of oral hypoglycemic drugs
CPT/HCPCS: 36415; 36600; 71045-TC-FY; 71250-TC; 80048; 80053; 81003; 81015; 82375; 82550; 82803; 82962; 83050; 83605; 83735; 83880; 84100; 84484; 85025; 87040; 87086; 87804; 87807; 87899; 93005; 93010; 94640; 94761; 99285-25; J0131; J7030